=== PATIENT | female | born 1930 | race Caucasian/White ===

== ENCOUNTER 2018-02-12 09:15 | Inpatient (IN) | payer MEDICARE ==
[2018-02-12] MEDS ORDERED: SODIUM CHLORIDE 0.9% 500 ML 500 ML IV STA (09:35)
[2018-02-12] MEDS ORDERED: PANTOPRAZOLE 40 MG/10 ML VIAL IVP STA (09:35)
--- NOTE | 2018-02-12 09:36 | ED ---
General Adult HPI - General Chief complaint: Abdominal Pain Stated complaint: Abd.pain Time Seen by Provider: 02/12/18 09:28 Source: patient, EMS, RN notes reviewed, old records reviewed Mode of arrival: EMS Limitations: no limitations - History of Present Illness Initial comments: 88-year-old female presents for evaluation nausea vomiting. Patient states she has history of multiple myeloma, currently on chemotherapy. Last treatment was approximately 8 days ago. She's had nausea vomiting for the past 2 days. Approximately 10 episodes. Described as coffee-ground emesis. Denies significant abdominal pain. She has had some intermittent diarrhea both over the past several weeks and over the past 48 hours. Denies melena. Denies bright red rectal bleeding. Patient denies chest pain or abdominal pain. Denies fever or chills. Denies she reappeared. Denies cough. - Related Data Home Medications Medication Instructions Recorded Confirmed Levothyroxine Sodium [Synthroid] 137 mcg PO DAILY 06/10/15 01/13/18 Pravastatin Sodium [Pravachol] 40 mg PO HS 06/10/15 01/13/18 Sertraline HCl [Zoloft] 150 mg PO HS 06/10/15 01/13/18 Brimonidine Tartrate/Timolol 1 drop BOTH EYES BID 04/09/17 01/13/18 [Combigan 0.2%-0.5% Eye Drops] Losartan [Cozaar] 50 mg PO DAILY 04/09/17 01/13/18 Dexamethasone 10 tab PO DAILY 04/12/17 01/13/18 Previous Rx's Medication Instructions Recorded Pantoprazole Sodium [Protonix] 40 mg PO BID #60 tablet. 04/13/17 Allergies Allergy/AdvReac Type Severity Reaction Status Date / Time No Known Allergies Allergy Verified 02/12/18 09:24 Review of Systems ROS Statement: Those systems with pertinent positive or pertinent negative responses have been documented in the HPI. ROS Other: All systems not noted in ROS Statement are negative. Past Medical History Past Medical History: Cancer, Eye Disorder, GERD/Reflux, Hearing Disorder / Deafness, Hyperlipidemia, Hypertension, Osteoarthritis (OA), Thyroid Disorder Additional Past Medical History / Comment(s): GLAUCOMA. 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 MULTIPLE MYELOMA. THROMBOCYTOPENIA. 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 History of Any Multi-Drug Resistant Organisms: None Reported Past Surgical History: Section, Joint Replacement, Orthopedic Surgery Additional Past Surgical History / Comment(s): EXC RASHEED CATARACTS. ORIF RT ANKLE. TOTAL LT KNEE. Past Anesthesia/Blood Transfusion Reactions: No Reported Reaction Past Psychological History: Depression Smoking Status: Former smoker Past Alcohol Use History: None Reported Past Drug Use History: None Reported - Past Family History Mother Family Medical History: No Reported History General Exam Limitations: no limitations General appearance: alert, in no apparent distress Head exam: Present: atraumatic, normocephalic Eye exam: Present: normal appearance, PERRL ENT exam: Present: normal exam Neck exam: Present: normal inspection. Absent: tenderness, meningismus Respiratory exam: Present: normal lung sounds bilaterally. Absent: respiratory distress, wheezes Cardiovascular Exam: Present: regular rate, normal rhythm GI/Abdominal exam: Present: soft, distended. Absent: tenderness, guarding, rebound Extremities exam: Present: normal inspection, normal capillary refill. Absent: pedal edema, calf tenderness Neurological exam: Present: alert, oriented X3, CN II-XII intact. Absent: motor sensory deficit Psychiatric exam: Present: normal affect, normal mood Skin exam: Present: warm, dry, intact. Absent: cyanosis, diaphoretic Course Vital Signs 02/12/18 02/12/18 09:24 12:20 Temperature 97.7 F Pulse Rate 101 H 91 Respiratory 18 18 Rate Blood Pressure 119/77 132/77 O2 Sat by Pulse 96 96 Oximetry EKG Findings - EKG Comments: EKG Findings:: EKG: Normal sinus rhythm, left axis deviation, incomplete left bundle with a widened QRS at 110 ms. Left ventricular hypertrophy, no acute ST segment elevation, rate of 98, TN interval 168, QRS duration 110, QTC 469, similar compared to previous EKG in March 2017. Medical Decision Making - Medical Decision Making 88 female presenting with nausea vomiting, concern for coffee-ground emesis. On exam patient does have distended abdomen, no tenderness or rebound. Laboratory studies reveal hemoglobin 11 0 which is improved from previous at 10.1. Patient has leukocytosis with white blood cell count of 79 which is predominant PMNs. This is discussed with oncology given the patient's history, likely reactive. Patient has a worsening creatinine at 2.4. Urinalysis negative for infection. Chest x-ray negative for focal pneumonia. KUB was suggestive of small bowel obstruction, CT is obtained which shows no redness. Patient has lactic acidosis 3.5 is treated with IV hydration. Her vital signs remained stable while in the emergency department. She will be admitted for evaluation of ileus and suspected upper GI bleed. She is started on protonic [facility]. - Lab Data Result diagrams: 02/12/18 09:30 02/12/18 09:30 Lab Results 02/12/18 02/12/18 02/12/18 Range/Units 09:30 09:30 09:30 WBC 79.3 H* (3.8-10.6) k/uL RBC 3.24 L (3.80-5.40) m/uL Hgb 11.0 L (11.4-16.0) gm/dL Hct 34.1 (34.0-46.0) % MCV 105.2 H (80.0-100.0) fL MCH 33.8 (25.0-35.0) pg MCHC 32.2 (31.0-37.0) g/dL RDW 21.4 H (11.5-15.5) % Plt Count 160 (150-450) k/uL Neutrophils % (Manual) 90 % Band Neutrophils % 1 % Lymphocytes % (Manual) 4 % Monocytes % (Manual) 4 % Myelocytes % 2 % Neutrophils # (Manual) 72.10 H (1.3-7.7) k/uL Lymphocytes # (Manual) 3.17 (1.0-4.8) k/uL Monocytes # (Manual) 3.17 H (0-1.0) k/uL Myelocytes # (Manual) 1.59 H (0) k/uL Nucleated RBCs 0 (0-0) /100 WBC Anisocytosis Moderate Macrocytosis Marked PT (9.0-12.0) sec INR (<1.2) APTT (22.0-30.0) sec Sodium 139 (137-145) mmol/L Potassium 5.2 H (3.5-5.1) mmol/L Chloride 99 (98-107) mmol/L Carbon Dioxide 22 (22-30) mmol/L Anion Gap 18 mmol/L BUN 33 H (7-17) mg/dL Creatinine 2.40 H (0.52-1.04) mg/dL Est GFR (CKD-EPI)AfAm 21 (>60 ml/min/1.73 sqM) Est GFR (CKD-EPI)NonAf 18 (>60 ml/min/1.73 sqM) Glucose 151 H (74-99) mg/dL Plasma Lactic Acid Albert 3.5 H* (0.7-2.0) mmol/L Calcium 10.4 H (8.4-10.2) mg/dL Total Bilirubin 0.6 (0.2-1.3) mg/dL AST 32 (14-36) U/L ALT 19 (9-52) U/L Alkaline Phosphatase 186 H (38-126) U/L Total Protein 7.8 (6.3-8.2) g/dL Albumin 4.6 (3.5-5.0) g/dL Amylase 65 (30-110) U/L Lipase 63 (23-300) U/L Urine Color Urine Appearance (Clear) Urine pH (5.0-8.0) Ur Specific [place] (1.001-1.035) Urine Protein (Negative) Urine Glucose (UA) (Negative) Urine Ketones (Negative) Urine Blood (Negative) Urine Nitrite (Negative) Urine Bilirubin (Negative) Urine Urobilinogen (<2.0) mg/dL Ur Leukocyte Esterase (Negative) Urine RBC (0-5) /hpf Urine WBC (0-5) /hpf Ur Squamous Epith Cells (0-4) /hpf Urine Mucus (None) /hpf Blood Type Blood Type Recheck Antibody Screen Spec Expiration Date 02/12/18 02/12/18 02/12/18 Range/Units 09:30 09:30 10:14 WBC (3.8-10.6) k/uL RBC (3.80-5.40) m/uL Hgb (11.4-16.0) gm/dL Hct (34.0-46.0) % MCV (80.0-100.0) fL MCH (25.0-35.0) pg MCHC (31.0-37.0) g/dL RDW (11.5-15.5) % Plt Count (150-450) k/uL Neutrophils % (Manual) % Band Neutrophils % % Lymphocytes % (Manual) % Monocytes % (Manual) % Myelocytes % % Neutrophils # (Manual) (1.3-7.7) k/uL Lymphocytes # (Manual) (1.0-4.8) k/uL Monocytes # (Manual) (0-1.0) k/uL Myelocytes # (Manual) (0) k/uL Nucleated RBCs (0-0) /100 WBC Anisocytosis Macrocytosis PT 10.8 (9.0-12.0) sec INR 1.1 (<1.2) APTT 35.1 H (22.0-30.0) sec Sodium (137-145) mmol/L Potassium (3.5-5.1) mmol/L Chloride (98-107) mmol/L Carbon Dioxide (22-30) mmol/L Anion Gap mmol/L BUN (7-17) mg/dL Creatinine (0.52-1.04) mg/dL Est GFR (CKD-EPI)AfAm (>60 ml/min/1.73 sqM) Est GFR (CKD-EPI)NonAf (>60 ml/min/1.73 sqM) Glucose (74-99) mg/dL Plasma Lactic Acid Albert (0.7-2.0) mmol/L Calcium (8.4-10.2) mg/dL Total Bilirubin (0.2-1.3) mg/dL AST (14-36) U/L ALT (9-52) U/L Alkaline Phosphatase (38-126) U/L Total Protein (6.3-8.2) g/dL Albumin (3.5-5.0) g/dL Amylase (30-110) U/L Lipase (23-300) U/L Urine Color Yellow Urine Appearance Cloudy H (Clear) Urine pH 5.0 (5.0-8.0) Ur Specific [place] 1.016 (1.001-1.035) Urine Protein Trace H (Negative) Urine Glucose (UA) Negative (Negative) Urine Ketones Negative (Negative) Urine Blood Negative (Negative) Urine Nitrite Negative (Negative) Urine Bilirubin Negative (Negative) Urine Urobilinogen <2.0 (<2.0) mg/dL Ur Leukocyte Esterase Negative (Negative) Urine RBC <1 (0-5) /hpf Urine WBC <1 (0-5) /hpf Ur Squamous Epith Cells <1 (0-4) /hpf Urine Mucus Rare H (None) /hpf Blood Type O Positive Blood Type Recheck No Antibody Screen NEGATIVE Spec Expiration Date 02/15/20182329 Disposition Clinical Impression: Ileus, Acute kidney injury, Upper GI bleed Disposition: HOME SELF-CARE Condition: Good Is patient prescribed a controlled substance at d/c from ED?: No Referrals: Erlin Galindo MD [Primary Care Provider] - 1-2 days Decision to Admit Reason: Admit from EC Decision Date: 02/12/18 Decision Time: 12:50
[2018-02-12 10:13] LABS: Anisocytosis Moderate; HCT 34.1 % (34.0-46.0); MCH 33.8 pg (25.0-35.0); MCHC 32.2 g/dL (31.0-37.0); MCV 105.2 fL (80.0-100.0); Macrocytosis Marked; Mean Platelet Volume 7.7; Platelet Count 160 k/uL (150-450); RBC 3.24 m/uL (3.80-5.40); RDW 21.4 % (11.5-15.5)
[2018-02-12 10:18] LABS: INR 1.1 (<1.2); Partial Thromboplastin Time 35.1 sec (22.0-30.0); Prothrombin Time 10.8 sec (9.0-12.0)
[2018-02-12 10:19] LABS: Albumin 4.6 g/dL (3.5-5.0); Calcium 10.4 mg/dL (8.4-10.2); Potassium 5.2 mmol/L (3.5-5.1); Total Bilirubin 0.6 mg/dL (0.2-1.3); Total Protein 7.8 g/dL (6.3-8.2)
[2018-02-12 10:33] LABS: WBC 79.3 k/uL (3.8-10.6)
[2018-02-12 10:37] LABS: Band Neutrophils % 1 %; Lymphocytes # (M) 3.17 k/uL (1.0-4.8); Monocytes # (M) 3.17 k/uL (0-1.0); Myelocytes # (M) 1.59 k/uL (0); Myelocytes % 2 %; Neutrophils % (M) 90 %; Nucleated Red Blood Cells 0 /100 WBC (0-0); Total Cells Counted 200
[2018-02-12 10:43] LABS: Appearance,Urine Cloudy (Clear); Bilirubin,Urine Negative (Negative); Blood,Urine Negative (Negative); Color,Urine Yellow; Glucose,Urine (UA) Negative (Negative); Ketones,Urine Negative (Negative); Leukocyte Esterase,Urine Negative (Negative); Mucus,Urine Rare /hpf; Nitrite,Urine Negative (Negative); Protein,Urine Trace (Negative); RBC,Urine <1 /hpf (0-5); Specific Gravity,Urine 1.016 (1.001-1.035); Squamous Epithelial Cell,Urine <1 /hpf (0-4); Urobilinogen,Urine <2.0 mg/dL (<2.0); WBC,Urine <1 /hpf (0-5)
--- NOTE | 2018-02-12 10:43 | XR ---
EXAMINATION TYPE: XR chest 2V DATE OF EXAM: 02/12/2018 HISTORY: jayson. REFERENCE: Previous study dated 04/11/2017. FINDINGS: The heart is upper limits of normal in size. There is some scarring at the left lung base. The lungs are otherwise clear. Pleural spaces are clear. IMPRESSION: 1. BORDERLINE CARDIOMEGALY. 2. MILD SCARRING, LEFT LUNG BASE.
--- NOTE | 2018-02-12 10:45 | XR ---
EXAMINATION TYPE: XR KUB , 2 VIEWS DATE OF EXAM ORDERED: 02/12/2018 HISTORY: abdominal pain. COMPARISON: None. FINDINGS: There is a partial eventration of the right hemidiaphragm. Lungs otherwise clear. Within the abdomen there are nondistended loops of small bowel throughout the abdomen. There is a [place] of colonic gas. There is no evidence of obstruction or free air. There are some vascular calcifi cations present. IMPRESSION: SMALL BOWEL ILEUS VERSUS OBSTRUCTION.
[2018-02-12] MEDS ORDERED: SODIUM CHLORIDE 0.9% 500 ML 500 ML IV ONE (10:57)
--- NOTE | 2018-02-12 11:51 | CT ---
EXAMINATION TYPE: CT abdomen pelvis wo con DATE OF EXAM: 02/12/2018 COMPARISON: NONE HISTORY: Nausea, vomiting and diarrhea. CT DLP: 371.8 mGycm Automated exposure control for dose reduction was used. FINDINGS: There is mild, dependent atelectasis in the dependent portions of the lungs. There is a tra ce effusion on the right. There is no pericardial fluid. The heart is not enlarged. There are vascula r calcifications including the coronary arteries. Within the abdomen, the liver, spleen and gallbladder are unremarkable. There is a tiny calcification adjacent to the posterior segment of the right lobe of the liver of uncertain origin. Both adrenal glands appear normal. The left kidney is considerably smaller than the right kidney and may suffer from atrophy. Very Limited views of the pancreas are unremarkable. There is no significant retroperitoneal, iliac or inguinal adenopathy. The bladder is not distended. There are some calcifications associated with the uterus, likely secondary to fibroid change. The lef t ovary is unremarkable. The right ovary is not visualized with certainty. The colon is distended with fluid with large air-fluid levels. There is high density material layerin g in the cecum. This may be old contrast or medication. The appendix is not visualized with certainty . Small bowel loops distally are also distended and fluid-filled. There are more normal proximally. There is no significant free fluid or free air. There is hypertrophic spondylosis, facet arthropathy and degenerative disc disease in the spine. Ther e is a 60% compression fracture of L4 and a 20% compression fracture of L3. IMPRESSION: 1. FINDINGS SUGGESTIVE OF GENERALIZED ILEUS. 2. TINY RIGHT-SIDED EFFUSION. 3. LEFT RENAL ATROPHY. 4. PROBABLE FIBROID UTERUS. 5. MARKED DEGENERATIVE CHANGES AND WEDGE COMPRESSION FRACTURES WITHIN THE LUMBAR SPINE. THESE APPEAR CHRONIC.
[2018-02-12] MEDS: SODIUM CHLORIDE 0.9% 1,000 ML IV SCH ×2 (12:16→16:44)
[2018-02-12] MEDS ORDERED: NALOXONE 0.4 MG/ML 1 ML VIAL IV PRN (12:44)
[2018-02-12] MEDS ORDERED: ONDANSETRON 4 MG/2 ML VIAL IVP PRN (12:44)
[2018-02-12 15:14] LABS: Anisocytosis Moderate; HCT 29.9 % (34.0-46.0); HGB 9.9 gm/dL (11.4-16.0); MCH 34.3 pg (25.0-35.0); Macrocytosis Marked; Mean Platelet Volume 8.2; Platelet Count 130 k/uL (150-450); RBC 2.87 m/uL (3.80-5.40); RDW 20.7 % (11.5-15.5)
[2018-02-12 15:21] LABS: Albumin 3.9 g/dL (3.5-5.0); Calcium 9.5 mg/dL (8.4-10.2); Potassium 5.1 mmol/L (3.5-5.1); Total Bilirubin 0.4 mg/dL (0.2-1.3); Total Protein 6.5 g/dL (6.3-8.2)
[2018-02-12] MEDS ORDERED: ACETAMINOPHEN IV (For NPO) 1,000 MG in EMPTY BAG 1 BAG IVPB ONE (15:28)
[2018-02-12 17:04] VITALS: BMI 21.2
[2018-02-12 17:09] LABS: Band Neutrophils % 3 %; Lymphocytes # (M) 4.55 k/uL (1.0-4.8); Metamyelocytes % 2 %; Myelocytes # (M) 1.95 k/uL (0); Myelocytes % 3 %; Neutrophils % (M) 82 %; Nucleated Red Blood Cells 0 /100 WBC (0-0); Polychromasia Present; Total Cells Counted 200
[2018-02-12] MEDS: PANTOPRAZOLE 40 MG/10 ML VIAL IVP SCH (20:11)
[2018-02-12] MEDS ORDERED: MELATONIN 3 MG TABLET PO PRN (22:12)
[2018-02-12] MEDS ORDERED: ALPRAZolam 0.25 MG TAB PO PRN (22:12)
[2018-02-12] MEDS ORDERED: CALCIUM CARBONATE 500 MG CHEWABLE PO PRN (22:12)
[2018-02-12] MEDS ORDERED: SULFAMETHOX-TMP 800-160MG 1 EACH TAB PO SCH (22:15)
[2018-02-12] MEDS ORDERED: metroNIDAZOLE 500 MG TAB PO SCH (22:15)
[2018-02-12] MEDS: LATANOPROST 0.005% OPHTH DROPS 2.5 ML BTL BOTH EYES SCH (22:36)
[2018-02-12] MEDS: SERTRALINE 50 MG TAB PO SCH (22:36)
[2018-02-12] MEDS: ACYCLOVIR 200 MG CAP PO SCH (22:36)
[2018-02-12] MEDS: BRIMONIDINE TARTRATE 0.2% DROPS 5 ML BTL BOTH EYES SCH (22:40)
[2018-02-12] MEDS: DORZOLAMIDE HCL 2% DROPS 10 ML BTL BOTH EYES SCH (22:40)
[2018-02-12] MEDS: PIPERACILLIN-TAZOBACTAM 3.375 GM in DEXTROSE/WATER 1 50ML.BAG IVPB SCH (22:47)
[2018-02-12] MEDS ORDERED: PIPERACILLIN-TAZOBACTAM 2.25 GM in DEXTROSE/WATER 1 50ML.BAG IVPB SCH (23:00)
--- NOTE | 2018-02-12 23:32 | HP ---
HISTORY AND PHYSICAL DATE OF ADMISSION: 02/12/2018 DATE OF SERVICE: 02/12/2018 PRESENT COMPLAINT: Nausea, vomiting, diarrhea. HISTORY OF PRESENTING COMPLAINT: A very pleasant, 88 -year-old patient of Dr. Galindo. The patient is being followed by Dr. Jaquez for multiple myeloma. The patient is on chemotherapy 1 week on and 1 week off. Chronic stable medical conditions include GERD, hard of hearing, hyperlipidemia, hypertension, osteoarthritis, hypothyroidism and herniated disc. This is patient's week off with chemotherapy. One day ago patient started off with the multiple episodes of vomiting, diarrhea, abdominal distention, some abdominal pain. There was no fever, no chills. The patient in the ER, found to have a very grossly elevated white count of 79,000, also has renal failure. CT scan of the abdomen did show an ileus with air- fluid levels in the small and large bowel. The patient admitted for the same. C diff came back to be negative as the patient also had multiple stools. REVIEW OF SYSTEMS: CONSTITUTIONAL: Weak and tired. HEENT: None. RESPIRATORY: None. CARDIOVASCULAR: None. GASTROINTESTINAL: As above. Abdomen distended. GENITOURINARY: As above. MUSCULOSKELETAL: Arthritic pain in the joints. DERMATOLOGICAL: None. HEMATOLOGICAL: None. LYMPHATICS: None. PSYCHIATRIC: None. NEUROLOGICAL: None. PAST MEDICAL HISTORY: GERD, hard of hearing, hyperlipidemia, hypertension, osteoarthritis, hypothyroid, multiple myeloma, thrombocytopenia, herniated disc. PAST SURGICAL HISTORY: , joint replacement, bilateral cataract, ORIF left ankle, total left knee. PSYCH HISTORY: Depression. SOCIAL HISTORY: The patient smoked lightly for 25 years, until 1973. Alcohol none. The patient's son lives in the next door apartment. FAMILY HISTORY: Reviewed, not pertinent to presentation. HOME MEDICATIONS: 1. Bactrim DS 1 tablet as directed. 2. Zoloft 150 mg at bedtime. 3. Pravachol 40 mg q.h.s. 4. Omeprazole 20 mg p.o. daily. 5. Multivitamin 1 tablet p.o. daily. 6. Synthroid 137 mcg p.o. daily. 7. Xalatan 0.005% 1 drop to both eyes q.h.s. 8. Calcium 600 mg p.o. daily. 9. Simbrinza 1%/0.2% 1 drop to both eyes b.i.d. 10.Acyclovir 4 mg b.i.d. ALLERGIES: None. PHYSICAL EXAMINATION: VITAL SIGNS: Temperature 100.4, pulse 101, respiration 18, blood pressure 119/77, pulse ox 96% on room air. GENERAL APPEARANCE: Thin build, lying in bed, tired appearing. EYES: Pupils equal. Conjunctivae pale. HEENT: External appearance of nose and ears normal. Oral cavity dry. NECK: JVD not raised. Mass not palpable. RESPIRATORY: Effort normal. LUNGS: Decreased breath sounds. CARDIOVASCULAR: 1st and 2nd sounds normal. No edema. ABDOMEN: Distended, mild tenderness. Bowel sounds are present. Liver and spleen not palpable. LYMPHATICS: No lymph nodes palpable in the neck and axilla. PSYCHIATRY: Alert and oriented x3. Mood and affect anxious-appearing. NEUROLOGICAL: Pupils equal. Cranial nerves grossly intact. Power and sensation grossly intact. MUSCULOSKELETAL: Evidence of osteoarthritis especially in the hands. INVESTIGATIONS: White count 23167, hemoglobin 9.9, platelets 130, potassium 5.1, BUN 35, creatinine 2.32. BUN and creatinine was 26/1.45 on January 06, 2018. C diff toxin PCR negative. Chest x-ray film, personally reviewed by me shows some cardiomegaly. Lung silva otherwise are clear with some kyphosis, some anterior wedging. Abdominal x-ray showing small bowel ileus versus obstruction. CT scan of the abdomen and pelvis suggesting generalized ileus, left renal atrophy, mild DJD, wedge compression fracture in the lumbar spine. ASSESSMENT: 1. This is a patient who is on chemotherapy on and off for multiple myeloma on week off, presented 1 day of severe nausea, vomiting, and multiple stools. Stool is negative for C diff. White count is up to 70,000. The patient has got a bit of septic picture with a fever, tachycardia. 2. Primary osteoarthritis. 3. Hypothyroidism. 4. 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 5. Bicytopenia probably due to chemotherapy. 6. Metabolic acidosis, acute renal failure probably prerenal. PLAN: Patient's home medications are resumed. Patient's Bactrim will be held off. The patient will be put on ice chips, IV fluids. Start the patient on broad-spectrum antibiotics given the chemotherapy. Consult GI, Dr. Jaquez, keep a close eye. Also getting IV fluids. Copy to Dr. Galindo. MMSUSANL / IJN: [id number] /
[2018-02-13] MEDS: ACETAMINOPHEN TAB 325 MG TAB PO PRN ×4 (02:47→22:47)
[2018-02-13] MEDS: SODIUM CHLORIDE 0.9% 1,000 ML IV SCH ×3 (02:48→16:35)
[2018-02-13] MEDS: LEVOTHYROXINE 137 MCG TAB PO SCH (05:53)
[2018-02-13] MEDS: MULTIVITAMINS, THERA 1 EACH TAB PO SCH (07:19)
[2018-02-13] MEDS ORDERED: PANTOPRAZOLE 40 MG TABLET PO SCH (07:30)
[2018-02-13] MEDS: BRIMONIDINE TARTRATE 0.2% DROPS 5 ML BTL BOTH EYES SCH ×2 (07:33→20:23)
[2018-02-13] MEDS: ACYCLOVIR 200 MG CAP PO SCH ×2 (07:33→20:25)
[2018-02-13] MEDS: DORZOLAMIDE HCL 2% DROPS 10 ML BTL BOTH EYES SCH ×2 (07:33→20:23)
[2018-02-13 07:58] LABS: Albumin 3.3 g/dL (3.5-5.0); Calcium 8.5 mg/dL (8.4-10.2); Magnesium 2.1 mg/dL (1.6-2.3); Potassium 4.4 mmol/L (3.5-5.1); Total Bilirubin 0.5 mg/dL (0.2-1.3); Total Protein 5.8 g/dL (6.3-8.2)
[2018-02-13 08:02] LABS: Anisocytosis Moderate; HCT 29.5 % (34.0-46.0); HGB 9.5 gm/dL (11.4-16.0); Hypochromasia Slight; MCH 34.5 pg (25.0-35.0); MCHC 32.2 g/dL (31.0-37.0); MCV 107.2 fL (80.0-100.0); Macrocytosis Marked; Mean Platelet Volume 7.6; Platelet Count 123 k/uL (150-450); RBC 2.75 m/uL (3.80-5.40); RDW 21.5 % (11.5-15.5)
[2018-02-13 10:32] LABS: Band Neutrophils % 6 %; Lymphocytes # (M) 4.06 k/uL (1.0-4.8); Metamyelocytes # (M) 0.58 k/uL (0); Metamyelocytes % 1 %; Myelocytes # (M) 1.16 k/uL (0); Myelocytes % 2 %; Neutrophils % (M) 80 %; Nucleated Red Blood Cells 0 /100 WBC (0-0); Total Cells Counted 200
[2018-02-13] MEDS: PANTOPRAZOLE 40 MG/10 ML VIAL IVP SCH ×2 (11:32→21:45)
[2018-02-13] MEDS: PIPERACILLIN-TAZOBACTAM 3.375 GM in DEXTROSE/WATER 1 50ML.BAG IVPB SCH ×2 (11:32→18:58)
--- NOTE | 2018-02-13 14:08 | P.CONS ---
History of Present Illness - Reason for Consult Consult date: 02/13/18 Sepsis - History of Present Illness This is an 88-year-old female patient with past medical history significant for multiple myeloma under the care of Dr. Jaquez. Patient states she has had ongoing problems with diarrhea on and off since she was diagnosed in March 2017 with multiple myeloma. She states this episode that was bad started on . She is having multiple watery stools. She denies any fever or chills. She did have nausea and vomiting which has been resolved with Zofran. She states this episode actually started first with vomiting and did this several times during the day and then diarrhea followed. She normally takes Imodium and keeps this under control but this episode was worse than usual. Patient denies having any blood or tarriness to her stools or emesis. She came into [facility] emergency center for evaluation. Temperature maximum 100.4, white count initially 79.3 is now 58 with hemoglobin of 9.5 and platelet count 123. Creatinine was initially 2.4 and now at 1.79. Lactic acid was 3.5 and is now 1.3 status post 1 L of IV fluids, ceftriaxone IV Tylenol and Protonix were all given in the emergency center. Alkaline phosphatase was also elevated 186 and repeat is 122. Albumin is 3.3. Chest x- ray shows borderline cardiomegaly and left lower base scarring. CAT scan of the abdomen and pelvis without contrast showed generalized ileus, probable fibroid uterus, left renal atrophy, some tiny right-sided effusion. General changes in wedge compression fractures in the lumbar spine appear chronic. Patient was placed on Zosyn and admitted to the oncology unit. There is consult in place with Dr. Jaquez and immunoglobulin, stool for CMV and protein electrophoresis have been ordered. There is also Giardia and cryptosporidium ordered. Urine culture and blood culture status received. Patient has been on Zosyn and this point, she states she is not feeling any better but her nausea is improved. She has had multiple bowel movements since admission. C. difficile toxin is negative. Influenza testing is negative. Review of Systems All systems: negative Constitutional: Reports anorexia, Reports fatigue, Reports poor appetite, Reports weakness, Reports weight loss, Denies chills, Denies fever Eyes: denies blurred vision, denies pain Ears, nose, mouth and throat: Denies dental pain, Denies dysphagia, Denies headache, Denies mouth pain, Denies sore throat, Denies vertigo Cardiovascular: Denies chest pain, Denies shortness of breath, Denies syncope Respiratory: Denies cough, Denies cough with sputum, Denies dyspnea, Denies excessive sputum, Denies hemoptysis, Denies home oxygen, Denies wheezing Gastrointestinal: Reports abdominal pain, Reports diarrhea, Reports loss of appetite, Reports nausea, Reports vomiting, Denies coffee ground emesis, Denies constipation, Denies hematemesis, Denies hematochezia, Denies melena Genitourinary: Denies dysuria, Denies hematuria, Denies urgency, Denies urinary frequency Musculoskeletal: Denies frequent falls, Denies gait dysfunction, Denies myalgias Integumentary: Denies pruritus, Denies rash, Denies wounds Neurological: Denies change in mentation, Denies confusion, Denies gait dysfunction, Denies numbness, Denies weakness Psychiatric: Denies anxiety, Denies depression Endocrine: Denies fatigue, Denies weight change Past Medical History Past Medical History: Cancer, Eye Disorder, GERD/Reflux, Hearing Disorder / Deafness, Hyperlipidemia, Hypertension, Osteoarthritis (OA), Thyroid Disorder Additional Past Medical History / Comment(s): GLAUCOMA. 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 MULTIPLE MYELOMA. THROMBOCYTOPENIA. 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 History of Any Multi-Drug Resistant Organisms: None Reported Past Surgical History: Section, Joint Replacement, Orthopedic Surgery Additional Past Surgical History / Comment(s): EXC RASHEED CATARACTS. ORIF RT ANKLE. TOTAL LT KNEE. Past Anesthesia/Blood Transfusion Reactions: No Reported Reaction Past Psychological History: Depression Smoking Status: Former smoker Past Alcohol Use History: None Reported Additional Past Alcohol Use History / Comment(s): SMOKED LIGHTLY 27 YEARS EST, UNTIL 1973. She denies any illicit drug use. She does drink alcohol occasionally. She lives at home and her son lives in the apartment next to her. 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 There is a cat in the home. Past Drug Use History: None Reported - Past Family History Mother Family Medical History: No Reported History Medications and Allergies Home Medications Medication Instructions Recorded Confirmed Type Levothyroxine Sodium [Synthroid] 137 mcg PO DAILY 06/10/15 02/12/18 History Pravastatin Sodium [Pravachol] 40 mg PO HS 06/10/15 02/12/18 History Sertraline HCl [Zoloft] 150 mg PO HS 06/10/15 02/12/18 History Acyclovir 400 mg PO BID 02/12/18 02/12/18 History Brinzolamide/Brimonidine Tart 1 drop BOTH EYES BID 02/12/18 02/12/18 History [Simbrinza 1%-0.2% Eye Drops] Calcium Carbonate [Calcium] 600 mg PO DAILY 02/12/18 02/12/18 History Latanoprost [Xalatan 0.005%] 1 drop BOTH EYES HS 02/12/18 02/12/18 History Multivitamins, Thera [Multivitamin 1 tab PO DAILY 02/12/18 02/12/18 History (formulary)] Omeprazole 20 mg PO DAILY 02/12/18 02/12/18 History Sulfamethox-Tmp 800-160Mg [Bactrim 1 tab PO DIRECTED 02/12/18 02/12/18 History DS 800-160 mg] Allergies Allergy/AdvReac Type Severity Reaction Status Date / Time No Known Allergies Allergy Verified 02/12/18 13:32 Physical Exam Vitals: Vital Signs Temp Pulse Pulse Resp BP BP Pulse Ox 02/13/18 07:11 98.2 F 87 16 126/61 94 L 02/12/18 16:30 98.6 F 92 16 130/64 95 02/12/18 15:25 100.4 F H 93 18 133/67 96 02/12/18 14:19 88 18 126/71 96 02/12/18 12:20 91 18 132/77 96 Intake and Output 02/12/18 02/13/18 02/13/18 22:59 06:59 14:59 Intake Total 620 1050 Balance 620 1050 Intake: Intake, IV Titration 500 1050 Amount Piperacillin-Tazobactam 3 50 .375 gm In Dextrose/Water 1 50ml.bag @ 12.5 mls/hr IVPB Q12H [facility] Rx#: [id number] Sodium Chloride 0.9% 1, 500 1000 000 ml @ 125 mls/hr IV . Q8H [facility] Rx#:[id number] Oral 120 Other: Voiding Method Bedside Commode Bedside Commode Bedside Commode Diaper Diaper Incontinent Incontinent # Bowel Movements 1 2 Weight 63.276 kg Gen: This is an 88-year-old female. She appears to be uncomfortable and in bed. She is slightly thin-appearing. HEENT: Head is atraumatic, normocephalic. Pupils equal, round. Sclerae is anicteric. Mucous members of the mouth are slightly dry. No thrush noted. NECK: Supple. No JVD. No lymphadenopathy. No thyromegaly. LUNGS: Clear to auscultation. No wheezes or rhonchi. No intercostal retractions. HEART: Regular rate and rhythm. No murmur. ABDOMEN: Soft. Bowel sounds are present. No masses. Mild generalized tenderness. EXTREMITIES: No pedal edema. No calf tenderness. Dorsalis pedis +2 bilaterally. NEUROLOGICAL: Patient is awake, alert and oriented x3. Cranial nerves 2 through 12 are grossly intact. Results Results: Laboratory Results WBC 58.0 k/uL (3.8-10.6) H* 02/13/18 07:12 RBC 2.75 m/uL (3.80-5.40) L 02/13/18 07:12 Hgb 9.5 gm/dL (11.4-16.0) L 02/13/18 07:12 Hct 29.5 % (34.0-46.0) L 02/13/18 07:12 MCV 107.2 fL (80.0-100.0) H 02/13/18 07:12 MCH 34.5 pg (25.0-35.0) 02/13/18 07:12 MCHC 32.2 g/dL (31.0-37.0) 02/13/18 07:12 RDW 21.5 % (11.5-15.5) H 02/13/18 07:12 Plt Count 123 k/uL (150-450) L 02/13/18 07:12 Neutrophils % (Manual) 80 % 02/13/18 07:12 Band Neutrophils % 6 % 02/13/18 07:12 Lymphocytes % (Manual) 7 % 02/13/18 07:12 Monocytes % (Manual) 5 % 02/13/18 07:12 Metamyelocytes % 1 % 02/13/18 07:12 Myelocytes % 2 % 02/13/18 07:12 Neutrophils # (Manual) 49.80 k/uL (1.3-7.7) H 02/13/18 07:12 Lymphocytes # (Manual) 4.06 k/uL (1.0-4.8) 02/13/18 07:12 Monocytes # (Manual) 2.90 k/uL (0-1.0) H 02/13/18 07:12 Metamyelocytes # (Man) 0.58 k/uL (0) H 02/13/18 07:12 Myelocytes # (Manual) 1.16 k/uL (0) H 02/13/18 07:12 Nucleated RBCs 0 /100 WBC (0-0) 02/13/18 07:12 Manual Slide Review Performed 02/13/18 07:12 Polychromasia Present 02/12/18 14:55 Hypochromasia Slight 02/13/18 07:12 Anisocytosis Moderate 02/13/18 07:12 Macrocytosis Marked 02/13/18 07:12 PT 10.8 sec (9.0-12.0) 02/12/18 09:30 INR 1.1 (<1.2) 02/12/18 09:30 APTT 35.1 sec (22.0-30.0) H 02/12/18 09:30 Sodium 140 mmol/L (137-145) 02/13/18 07:12 Potassium 4.4 mmol/L (3.5-5.1) 02/13/18 07:12 Chloride 111 mmol/L (98-107) H 02/13/18 07:12 Carbon Dioxide 18 mmol/L (22-30) L 02/13/18 07:12 Anion Gap 11 mmol/L 02/13/18 07:12 BUN 38 mg/dL (7-17) H 02/13/18 07:12 Creatinine 1.79 mg/dL (0.52-1.04) H 02/13/18 07:12 Est GFR (CKD-EPI)AfAm 29 (>60 ml/min/1.73 sqM) 02/13/18 07:12 Est GFR (CKD-EPI)NonAf 25 (>60 ml/min/1.73 sqM) 02/13/18 07:12 Glucose 107 mg/dL (74-99) H 02/13/18 07:12 Lactic Ac Sepsis Rflx Y 02/12/18 11:32 Plasma Lactic Acid Albert 1.3 mmol/L (0.7-2.0) 02/12/18 15:37 Calcium 8.5 mg/dL (8.4-10.2) 02/13/18 07:12 Magnesium 2.1 mg/dL (1.6-2.3) 02/13/18 07:12 Total Bilirubin 0.5 mg/dL (0.2-1.3) 02/13/18 07:12 AST 24 U/L (14-36) 02/13/18 07:12 ALT 20 U/L (9-52) 02/13/18 07:12 Alkaline Phosphatase 122 U/L (38-126) 02/13/18 07:12 Total Protein 5.8 g/dL (6.3-8.2) L 02/13/18 07:12 Albumin 3.3 g/dL (3.5-5.0) L 02/13/18 07:12 Amylase 65 U/L (30-110) 02/12/18 09:30 Lipase 63 U/L (23-300) 02/12/18 09:30 Urine Color Yellow 02/12/18 10:14 Urine Appearance Cloudy (Clear) H 02/12/18 10:14 Urine pH 5.0 (5.0-8.0) 02/12/18 10:14 Ur Specific [place] 1.016 (1.001-1.035) 02/12/18 10:14 Urine Protein Trace (Negative) H 02/12/18 10:14 Urine Glucose (UA) Negative (Negative) 02/12/18 10:14 Urine Ketones Negative (Negative) 02/12/18 10:14 Urine Blood Negative (Negative) 02/12/18 10:14 Urine Nitrite Negative (Negative) 02/12/18 10:14 Urine Bilirubin Negative (Negative) 02/12/18 10:14 Urine Urobilinogen <2.0 mg/dL (<2.0) 02/12/18 10:14 Ur Leukocyte Esterase Negative (Negative) 02/12/18 10:14 Urine RBC <1 /hpf (0-5) 02/12/18 10:14 Urine WBC <1 /hpf (0-5) 02/12/18 10:14 Ur Squamous Epith Cells <1 /hpf (0-4) 02/12/18 10:14 Urine Mucus Rare /hpf (None) H 02/12/18 10:14 C. difficile Tox (PCR) Not Detected (Not Detectd) 02/12/18 15:37 Influenza Type A RNA Not Detected (Not Detectd) 02/13/18 09:25 Influenza Type B (PCR) Not Detected (Not Detectd) 02/13/18 09:25 Blood Type O Positive 02/12/18 09:30 Blood Type Recheck No 02/12/18 09:30 Antibody Screen NEGATIVE 02/12/18 09:30 Spec Expiration Date 02/15/2018 - 232902/12/18 09:30 CBC & Chem 7: 02/13/18 07:12 02/13/18 07:12 Labs: Abnormal Lab Results - Last 24 Hours (Table) 02/12/18 02/12/18 02/12/18 Range/Units 09:30 09:30 10:14 WBC 79.3 H* (3.8-10.6) k/uL RBC 3.24 L (3.80-5.40) m/uL Hgb 11.0 L (11.4-16.0) gm/dL Hct (34.0-46.0) % MCV 105.2 H (80.0-100.0) fL RDW 21.4 H (11.5-15.5) % Plt Count (150-450) k/uL Neutrophils # (Manual) 72.10 H (1.3-7.7) k/uL Monocytes # (Manual) 3.17 H (0-1.0) k/uL Metamyelocytes # (Man) (0) k/uL Myelocytes # (Manual) 1.59 H (0) k/uL Chloride (98-107) mmol/L Carbon Dioxide (22-30) mmol/L BUN (7-17) mg/dL Creatinine (0.52-1.04) mg/dL Glucose (74-99) mg/dL Plasma Lactic Acid Albert 3.5 H* (0.7-2.0) mmol/L Alkaline Phosphatase (38-126) U/L Total Protein (6.3-8.2) g/dL Albumin (3.5-5.0) g/dL Urine Appearance Cloudy H (Clear) Urine Protein Trace H (Negative) Urine Mucus Rare H (None) /hpf 02/12/18 02/12/18 02/13/18 Range/Units 14:55 14:55 07:12 WBC 65.0 H* (3.8-10.6) k/uL RBC 2.87 L (3.80-5.40) m/uL Hgb 9.9 L (11.4-16.0) gm/dL Hct 29.9 L (34.0-46.0) % MCV 104.0 H (80.0-100.0) fL RDW 20.7 H (11.5-15.5) % Plt Count 130 L (150-450) k/uL Neutrophils # (Manual) 55.20 H (1.3-7.7) k/uL Monocytes # (Manual) 2.60 H (0-1.0) k/uL Metamyelocytes # (Man) 1.30 H (0) k/uL Myelocytes # (Manual) 1.95 H (0) k/uL Chloride 111 H (98-107) mmol/L Carbon Dioxide 21 L 18 L (22-30) mmol/L BUN 35 H 38 H (7-17) mg/dL Creatinine 2.32 H 1.79 H (0.52-1.04) mg/dL Glucose 112 H 107 H (74-99) mg/dL Plasma Lactic Acid Albert (0.7-2.0) mmol/L Alkaline Phosphatase 151 H (38-126) U/L Total Protein 5.8 L (6.3-8.2) g/dL Albumin 3.3 L (3.5-5.0) g/dL Urine Appearance (Clear) Urine Protein (Negative) Urine Mucus (None) /hpf 02/13/18 Range/Units 07:12 WBC 58.0 H* (3.8-10.6) k/uL RBC 2.75 L (3.80-5.40) m/uL Hgb 9.5 L (11.4-16.0) gm/dL Hct 29.5 L (34.0-46.0) % MCV 107.2 H (80.0-100.0) fL RDW 21.5 H (11.5-15.5) % Plt Count 123 L (150-450) k/uL Neutrophils # (Manual) (1.3-7.7) k/uL Monocytes # (Manual) (0-1.0) k/uL Metamyelocytes # (Man) (0) k/uL Myelocytes # (Manual) (0) k/uL Chloride (98-107) mmol/L Carbon Dioxide (22-30) mmol/L BUN (7-17) mg/dL Creatinine (0.52-1.04) mg/dL Glucose (74-99) mg/dL Plasma Lactic Acid Albert (0.7-2.0) mmol/L Alkaline Phosphatase (38-126) U/L Total Protein (6.3-8.2) g/dL Albumin (3.5-5.0) g/dL Urine Appearance (Clear) Urine Protein (Negative) Urine Mucus (None) /hpf Microbiology - Last 24 Hours (Table) 02/12/18 10:14 Urine Culture - Preliminary Urine,Catheterized Assessment and Plan Plan: This is an 88-year-old female patient who presented to the hospital with fever, leukocytosis and possible sepsis with lactic acidosis along with acute kidney injury and concern for ileus. C. difficile toxin has been negative and stool studies are in progress. Dr. Sanchez is on consult and has advance her diet to clear and advance as tolerated to regular and suppository ordered. Patient is currently on Zosyn. Continue supportive care. Further recommendations as patient progresses. The above dictated assessment and findings were discussed with Dr. Kendrick. The impression and plan of care have been directed as dictated. Leah Contreras nurse practitioner acting as scribe for Dr. Kendrick.
--- NOTE | 2018-02-13 14:51 | P.GSCN ---
History of Present Illness Consult date: 02/13/18 Reason for Consult: Abdominal pain History of present illness: Patient admitted to the hospital yesterday because of abdominal discomfort associated with episodes of vomiting and diarrhea. The patient is currently undergoing chemotherapy for multiple myeloma. She is felt nausea with intermittent vomiting over the last 2-3 days. Has been having multiple loose stools over the last few days as well. Denies rectal bleeding or melena. Had 1 episode of emesis seen by EMS that was apparently dark in color. She had a fever of 100.4 on arrival. She had an elevated lactic acid that has improved. Stool cultures are currently pending. C. diff was negative. Last colonoscopy 6 -7 years ago. Denies pain currently. Does feel bloated. She is more hungry. CAT scan shows diffuse colonic distention with no definite transition point. No pneumatosis seen. Review of Systems The patient denies any acute changes in vision or hearing, no dysphagia or odynophagia, no chest pain or shortness of breath, no dysuria or hematuria, no headache, no runny nose, no rectal bleeding or melena, no unexplained weight loss Past Medical History Past Medical History: Cancer, Eye Disorder, GERD/Reflux, Hearing Disorder / Deafness, Hyperlipidemia, Hypertension, Osteoarthritis (OA), Thyroid Disorder Additional Past Medical History / Comment(s): GLAUCOMA. 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 MULTIPLE MYELOMA. THROMBOCYTOPENIA. 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 History of Any Multi-Drug Resistant Organisms: None Reported Past Surgical History: Section, Joint Replacement, Orthopedic Surgery Additional Past Surgical History / Comment(s): EXC RASHEED CATARACTS. ORIF RT ANKLE. TOTAL LT KNEE. Past Anesthesia/Blood Transfusion Reactions: No Reported Reaction Past Psychological History: Depression Smoking Status: Former smoker Past Alcohol Use History: None Reported Additional Past Alcohol Use History / Comment(s): SMOKED LIGHTLY 27 YEARS EST, UNTIL 1973. She denies any illicit drug use. She does drink alcohol occasionally. She lives at home and her son lives in the apartment next to her. 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 There is a cat in the home. Past Drug Use History: None Reported - Past Family History Mother Family Medical History: No Reported History Medications and Allergies Home Medications Medication Instructions Recorded Confirmed Type Levothyroxine Sodium [Synthroid] 137 mcg PO DAILY 06/10/15 02/12/18 History Pravastatin Sodium [Pravachol] 40 mg PO HS 06/10/15 02/12/18 History Sertraline HCl [Zoloft] 150 mg PO HS 06/10/15 02/12/18 History Acyclovir 400 mg PO BID 02/12/18 02/12/18 History Brinzolamide/Brimonidine Tart 1 drop BOTH EYES BID 02/12/18 02/12/18 History [Simbrinza 1%-0.2% Eye Drops] Calcium Carbonate [Calcium] 600 mg PO DAILY 02/12/18 02/12/18 History Latanoprost [Xalatan 0.005%] 1 drop BOTH EYES HS 02/12/18 02/12/18 History Multivitamins, Thera [Multivitamin 1 tab PO DAILY 02/12/18 02/12/18 History (formulary)] Omeprazole 20 mg PO DAILY 02/12/18 02/12/18 History Sulfamethox-Tmp 800-160Mg [Bactrim 1 tab PO DIRECTED 02/12/18 02/12/18 History DS 800-160 mg] Allergies Allergy/AdvReac Type Severity Reaction Status Date / Time No Known Allergies Allergy Verified 02/12/18 13:32 Surgical - Exam Vital Signs Temp Pulse Resp BP Pulse Ox 97.7 F 101 H 18 119/77 96 02/12/18 09:24 02/12/18 09:24 02/12/18 09:24 02/12/18 09:24 02/12/18 09:24 Physical exam: General: Well-developed, well-nourished HEENT: Normocephalic, sclerae nonicteric Abdomen: Distended with tympany, mild diffuse tenderness Extremities: No edema Neuro: Alert and oriented Results - Labs 02/13/18 07:12 02/13/18 07:12 Abnormal Lab Results - Last 24 Hours (Table) 02/12/18 02/12/18 02/13/18 Range/Units 14:55 14:55 07:12 WBC 65.0 H* (3.8-10.6) k/uL RBC 2.87 L (3.80-5.40) m/uL Hgb 9.9 L (11.4-16.0) gm/dL Hct 29.9 L (34.0-46.0) % MCV 104.0 H (80.0-100.0) fL RDW 20.7 H (11.5-15.5) % Plt Count 130 L (150-450) k/uL Neutrophils # (Manual) 55.20 H (1.3-7.7) k/uL Monocytes # (Manual) 2.60 H (0-1.0) k/uL Metamyelocytes # (Man) 1.30 H (0) k/uL Myelocytes # (Manual) 1.95 H (0) k/uL Chloride 111 H (98-107) mmol/L Carbon Dioxide 21 L 18 L (22-30) mmol/L BUN 35 H 38 H (7-17) mg/dL Creatinine 2.32 H 1.79 H (0.52-1.04) mg/dL Glucose 112 H 107 H (74-99) mg/dL Alkaline Phosphatase 151 H (38-126) U/L Total Protein 5.8 L (6.3-8.2) g/dL Albumin 3.3 L (3.5-5.0) g/dL 02/13/18 Range/Units 07:12 WBC 58.0 H* (3.8-10.6) k/uL RBC 2.75 L (3.80-5.40) m/uL Hgb 9.5 L (11.4-16.0) gm/dL Hct 29.5 L (34.0-46.0) % MCV 107.2 H (80.0-100.0) fL RDW 21.5 H (11.5-15.5) % Plt Count 123 L (150-450) k/uL Neutrophils # (Manual) 49.80 H (1.3-7.7) k/uL Monocytes # (Manual) 2.90 H (0-1.0) k/uL Metamyelocytes # (Man) 0.58 H (0) k/uL Myelocytes # (Manual) 1.16 H (0) k/uL Chloride (98-107) mmol/L Carbon Dioxide (22-30) mmol/L BUN (7-17) mg/dL Creatinine (0.52-1.04) mg/dL Glucose (74-99) mg/dL Alkaline Phosphatase (38-126) U/L Total Protein (6.3-8.2) g/dL Albumin (3.5-5.0) g/dL Microbiology - Last 24 Hours (Table) 02/12/18 09:30 Blood Culture - Preliminary Blood No Growth after 24 hours 02/12/18 10:14 Urine Culture - Preliminary Urine,Catheterized Diabetes panel 02/12/18 02/13/18 Range/Units 14:55 07:12 Sodium 138 140 (137-145) mmol/L Potassium 5.1 4.4 (3.5-5.1) mmol/L Chloride 105 111 H (98-107) mmol/L Carbon Dioxide 21 L 18 L (22-30) mmol/L BUN 35 H 38 H (7-17) mg/dL Creatinine 2.32 H 1.79 H (0.52-1.04) mg/dL Glucose 112 H 107 H (74-99) mg/dL Calcium 9.5 8.5 (8.4-10.2) mg/dL AST 25 24 (14-36) U/L ALT 26 20 (9-52) U/L Alkaline Phosphatase 151 H 122 (38-126) U/L Total Protein 6.5 5.8 L (6.3-8.2) g/dL Albumin 3.9 3.3 L (3.5-5.0) g/dL Calcium panel 02/12/18 02/13/18 Range/Units 14:55 07:12 Calcium 9.5 8.5 (8.4-10.2) mg/dL Albumin 3.9 3.3 L (3.5-5.0) g/dL Pituitary panel 02/12/18 02/13/18 Range/Units 14:55 07:12 Sodium 138 140 (137-145) mmol/L Potassium 5.1 4.4 (3.5-5.1) mmol/L Chloride 105 111 H (98-107) mmol/L Carbon Dioxide 21 L 18 L (22-30) mmol/L BUN 35 H 38 H (7-17) mg/dL Creatinine 2.32 H 1.79 H (0.52-1.04) mg/dL Glucose 112 H 107 H (74-99) mg/dL Calcium 9.5 8.5 (8.4-10.2) mg/dL Adrenal panel 02/12/18 02/13/18 Range/Units 14:55 07:12 Sodium 138 140 (137-145) mmol/L Potassium 5.1 4.4 (3.5-5.1) mmol/L Chloride 105 111 H (98-107) mmol/L Carbon Dioxide 21 L 18 L (22-30) mmol/L BUN 35 H 38 H (7-17) mg/dL Creatinine 2.32 H 1.79 H (0.52-1.04) mg/dL Glucose 112 H 107 H (74-99) mg/dL Calcium 9.5 8.5 (8.4-10.2) mg/dL Total Bilirubin 0.4 0.5 (0.2-1.3) mg/dL AST 25 24 (14-36) U/L ALT 26 20 (9-52) U/L Alkaline Phosphatase 151 H 122 (38-126) U/L Total Protein 6.5 5.8 L (6.3-8.2) g/dL Albumin 3.9 3.3 L (3.5-5.0) g/dL Assessment and Plan (1) Ileus Narrative/Plan: Patient with findings of probable colonic ileus on CAT scan. Begin daily Dulcolax. Increase activity and ambulation. Supportive antibiotics. Continue rehydration. Repeat abdominal x-rays tomorrow. Continue clear liquids only for now. Current Visit: Yes Status: Acute Code(s): K56.7 - ILEUS, UNSPECIFIED SNOMED Code(s): 408017387
[2018-02-13] MEDS: BISACODYL 10 MG SUPP RECTAL SCH (16:37)
[2018-02-13 17:28] LABS: Protein, Total 5.4 g/dL (6.2-8.2)
[2018-02-13] MEDS: LATANOPROST 0.005% OPHTH DROPS 2.5 ML BTL BOTH EYES SCH (20:23)
[2018-02-13] MEDS: PRAVASTATIN SODIUM 40 MG TAB PO SCH (20:24)
[2018-02-13] MEDS: SERTRALINE 50 MG TAB PO SCH (20:25)
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
--- NOTE | 2018-02-13 23:47 | P.CON ---
Consult Note - . Consult date: 02/13/18 Assessment/Plan:: This is an 88-year-old female patient with past medical history significant for multiple myeloma under the care of Dr. Jaquez. Patient states she has had ongoing problems with diarrhea on and off since she was diagnosed in March 2017 with multiple myeloma. She states this episode that was bad started on . She is having multiple watery stools. She denies any fever or chills. She did have nausea and vomiting which has been resolved with Zofran. She states this episode actually started first with vomiting and did this several times during the day and then diarrhea followed. She normally takes Imodium and keeps this under control but this episode was worse than usual. Patient denies having any blood or tarriness to her stools or emesis. She came into [facility] emergency center for evaluation. Temperature maximum 100.4, white count initially 79.3 is now 58 with hemoglobin of 9.5 and platelet count 123. Creatinine was initially 2.4 and now at 1.79. Lactic acid was 3.5 and is now 1.3 status post 1 L of IV fluids, ceftriaxone IV Tylenol and Protonix were all given in the emergency center. Alkaline phosphatase was also elevated 186 and repeat is 122. Albumin is 3.3. Chest x- ray shows borderline cardiomegaly and left lower base scarring. CAT scan of the abdomen and pelvis without contrast showed generalized ileus, probable fibroid uterus, left renal atrophy, some tiny right-sided effusion. General changes in wedge compression fractures in the lumbar spine appear chronic. Patient was placed on Zosyn and admitted to the oncology unit. There is consult in place with Dr. Jaquez and immunoglobulin, stool for CMV and protein electrophoresis have been ordered. There is also Giardia and cryptosporidium ordered. Urine culture and blood culture status received. Patient has been on Zosyn and this point, she states she is not feeling any better but her nausea is improved. She has had multiple bowel movements since admission. C. difficile toxin is negative. Influenza testing is negative. Please see the consult note is dictated by nurse practitioner Leahfrancia Contreras. As noted pleasant 88 neuro female presents to Hospital feeling quite poorly with abdominal pain some loose stools nausea and emesis. She's been seen by general surgery and there is evidence of an acute ileus and she is now on a small amount of clear liquid and a suppository to be placed to help with relief of what could be a partial obstruction. The patient has a profound leukocytosis was very concerning in a situation that could be potentially some ischemic colitis occurring. A leukemoid reaction is not unusual with C. diff infection however this is not being found at this time. Would continue antimicrobial therapy with Zosyn for now pending further culture results. Monitor leukocytosis. She's been closely monitored by general surgery. She also had evidence of acute renal failure that is starting to improve at this time. As noted influenza testing is negative. I agree with evaluation, assessment and plan is dictated by nurse practitioner Mrs. Leah Contreras.
--- NOTE | 2018-02-13 23:54 | PN ---
PROGRESS NOTE DATE OF SERVICE: 02/13/2018 PRESENTING COMPLAINT: Nausea, vomiting and diarrhea. INTERVAL HISTORY: This patient presented with a septic picture with elevated white count, clinical picture of severe gastroenteritis which could be viral, as C difficile was negative, and associated ileus. Patient empirically was put on IV Zosyn. Patient's abdomen feels a little bit less distended today; less pain. Had 2 or 3 loose stools. Getting IV fluids. Renal function is also improving, though slowly. REVIEW OF SYSTEMS: Done for constitutional, cardiovascular, GI, pulmonary; relevant findings as above. CURRENT MEDICATIONS: Reviewed. They include IV Zosyn, IV fluids. PHYSICAL EXAMINATION: Afebrile. Pulse 87, respiration 18, blood pressure 131/74, pulse ox 99% on room air. GENERAL APPEARANCE: Lying in bed, tired-appearing. EYES: Pupils equal. Conjunctivae pale. HEENT: External appearance of nose and ears normal. Oral cavity dry. NECK: JVD not raised. Mass not palpable. RESPIRATORY: Effort normal. LUNGS: Decreased breath sounds. CARDIOVASCULAR: First and second sounds normal. No edema. ABDOMEN: Slightly less distention. Decreased tenderness. Bowel sounds are present. Liver and spleen not palpable. PSYCHIATRY: Alert and oriented x3. Mood and affect normal. INVESTIGATIONS: White count 58, hemoglobin 9.5, platelets 123, potassium 4.4, BUN 38, creatinine 1.79. Stool was negative for ova and parasites. ASSESSMENT: 1. Acute septic gastroenteritis; could be viral in nature, though with a rather hefty white count, started to turn around. 2. Primary osteoarthritis. 3. Hypothyroidism. 4. 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 5. Bicytopenia, probably due to chemotherapy. 6. Metabolic acidosis from renal failure. 7. Acute ileus from severe gastroenteritis. 8. Chronic kidney disease, stage III. 9. Acute renal failure, probably prerenal, from diarrhea. PLAN: Continue with empiric antibiotics for now. IV fluids. Care was discussed with the patient. Questions were answered. Patient was seen by General Surgery and started on a clear liquid diet. Advance as tolerated. MMODL / IJN: [id number] /
[2018-02-14] MEDS: PIPERACILLIN-TAZOBACTAM 3.375 GM in DEXTROSE/WATER 1 50ML.BAG IVPB SCH ×3 (01:34→18:41)
[2018-02-14] MEDS: SODIUM CHLORIDE 0.9% 1,000 ML IV SCH ×3 (01:34→20:13)
--- NOTE | 2018-02-14 08:07 | XR ---
2 view abdomen HISTORY: Bowel obstruction, follow-up ileus 2 views of the abdomen submitted and correlated to prior abdomen and CT abdomen 02/12/2018 There are gas distended loops of small and large bowel present. No evident pneumoperitoneum. Vascular calcifications are noted. Spinal curvature, degenerative disc changes are again seen. Lung bases are clear. IMPRESSION: Findings could be due to ileus, correlate to exclude obstruction. Follow-up is recommende d.
[2018-02-14] MEDS: ACYCLOVIR 200 MG CAP PO SCH ×2 (08:19→20:05)
[2018-02-14] MEDS: PANTOPRAZOLE 40 MG/10 ML VIAL IVP SCH ×2 (08:19→20:06)
[2018-02-14] MEDS: MULTIVITAMINS, THERA 1 EACH TAB PO SCH (08:19)
[2018-02-14] MEDS: LEVOTHYROXINE 137 MCG TAB PO SCH (08:19)
[2018-02-14] MEDS: BRIMONIDINE TARTRATE 0.2% DROPS 5 ML BTL BOTH EYES SCH ×2 (08:20→20:06)
[2018-02-14] MEDS: DORZOLAMIDE HCL 2% DROPS 10 ML BTL BOTH EYES SCH ×2 (08:20→20:13)
[2018-02-14] MEDS: BISACODYL 10 MG SUPP RECTAL SCH (08:20)
[2018-02-14 09:32] LABS: Anisocytosis Moderate; HCT 26.5 % (34.0-46.0); HGB 8.6 gm/dL (11.4-16.0); Hypochromasia Moderate; MCH 35.2 pg (25.0-35.0); MCHC 32.6 g/dL (31.0-37.0); MCV 107.8 fL (80.0-100.0); Macrocytosis Marked; Mean Platelet Volume 7.8; Platelet Count 117 k/uL (150-450); RBC 2.45 m/uL (3.80-5.40); RDW 20.9 % (11.5-15.5)
[2018-02-14 09:47] LABS: Calcium 8.2 mg/dL (8.4-10.2); Potassium 3.7 mmol/L (3.5-5.1)
[2018-02-14 09:51] LABS: WBC 50.3 k/uL (3.8-10.6)
[2018-02-14 11:42] LABS: Band Neutrophils % 5 %; Lymphocytes # (M) 2.01 k/uL (1.0-4.8); Metamyelocytes # (M) 1.01 k/uL (0); Metamyelocytes % 2 %; Monocytes # (M) 2.01 k/uL (0-1.0); Myelocytes % 1 %; Neutrophils % (M) 85 %; Nucleated Red Blood Cells 0 /100 WBC (0-0); Total Cells Counted 200
[2018-02-14 11:42] LABS: Immunoglobulin A 28.4 mg/dL (60.0-350.0); Immunoglobulin M 19.5 mg/dL (40.0-280.0)
--- NOTE | 2018-02-14 13:22 | P.PN ---
Subjective Progress Note Date: 02/14/18 Principal diagnosis: Abdominal distention Patient still having some loose stools but has had more flatus. Admits to having some mild abdominal discomfort at times. Back pain is improved. White blood cell count remains elevated. Today's x-rays show small and large bowel distention although somewhat improved. She is afebrile. Objective - Vital Signs Vital signs: Vital Signs Temp 98 F 02/14/18 12:56 Pulse 81 02/14/18 12:56 Resp 16 02/14/18 12:56 BP 132/75 02/14/18 12:56 Pulse Ox 99 02/14/18 12:56 Intake & Output 02/13/18 02/14/18 02/14/18 18:59 06:59 18:59 Intake Total 1000 2140 Balance 1000 2140 Intake: Intake, IV Titration 1000 1550 Amount Piperacillin-Tazobactam 3 50 .375 gm In Dextrose/Water 1 50ml.bag @ 12.5 mls/hr IVPB Q8H [facility] Rx#: [id number] Sodium Chloride 0.9% 1, 1000 1500 000 ml @ 125 mls/hr IV . Q8H [facility] Rx#:[id number] Oral 590 Other: Voiding Method Bedside Commode Bedside Commode Diaper Diaper Diaper Incontinent Incontinent Incontinent # Voids 5 # Bowel Movements 2 5 - Exam Abdomen: Soft, distended, tympany present, overall distention slightly improved , minimal tenderness - Labs CBC & Chem 7: 02/14/18 09:02 02/14/18 09:02 Labs: Abnormal Lab Results - Last 24 Hours (Table) 02/13/18 02/13/18 02/14/18 Range/Units 07:12 07:12 09:02 WBC 50.3 H* (3.8-10.6) k/uL RBC 2.45 L (3.80-5.40) m/uL Hgb 8.6 L (11.4-16.0) gm/dL Hct 26.5 L (34.0-46.0) % MCV 107.8 H (80.0-100.0) fL MCH 35.2 H (25.0-35.0) pg RDW 20.9 H (11.5-15.5) % Plt Count 117 L (150-450) k/uL Neutrophils # (Manual) 45.20 H (1.3-7.7) k/uL Monocytes # (Manual) 2.01 H (0-1.0) k/uL Metamyelocytes # (Man) 1.01 H (0) k/uL Myelocytes # (Manual) 0.50 H (0) k/uL Chloride (98-107) mmol/L Carbon Dioxide (22-30) mmol/L BUN (7-17) mg/dL Creatinine (0.52-1.04) mg/dL Glucose (74-99) mg/dL Calcium (8.4-10.2) mg/dL Total Protein (PEP) 5.4 L (6.2-8.2) g/dL IgG 485.0 L (700.0-1600.0) mg/dL IgA 28.4 L (60.0-350.0) mg/dL IgM 19.5 L (40.0-280.0) mg/dL 02/14/18 Range/Units 09:02 WBC (3.8-10.6) k/uL RBC (3.80-5.40) m/uL Hgb (11.4-16.0) gm/dL Hct (34.0-46.0) % MCV (80.0-100.0) fL MCH (25.0-35.0) pg RDW (11.5-15.5) % Plt Count (150-450) k/uL Neutrophils # (Manual) (1.3-7.7) k/uL Monocytes # (Manual) (0-1.0) k/uL Metamyelocytes # (Man) (0) k/uL Myelocytes # (Manual) (0) k/uL Chloride 115 H (98-107) mmol/L Carbon Dioxide 16 L (22-30) mmol/L BUN 30 H (7-17) mg/dL Creatinine 1.11 H (0.52-1.04) mg/dL Glucose 114 H (74-99) mg/dL Calcium 8.2 L (8.4-10.2) mg/dL Total Protein (PEP) (6.2-8.2) g/dL IgG (700.0-1600.0) mg/dL IgA (60.0-350.0) mg/dL IgM (40.0-280.0) mg/dL Microbiology - Last 24 Hours (Table) 02/12/18 09:30 Blood Culture - Preliminary Blood No Growth after 48 hours 02/12/18 10:14 Urine Culture - Final Urine,Catheterized Assessment and Plan (1) Ileus Narrative/Plan: Today's x-rays seem mildly improved and the patient on examination seems improved as well. Continue clear liquids. Continue Reglan and Dulcolax. If symptoms persist we'll consider unprepped barium enema. Current Visit: Yes Status: Acute Code(s): K56.7 - ILEUS, UNSPECIFIED SNOMED Code(s): 769904995
[2018-02-14] MEDS: SERTRALINE 50 MG TAB PO SCH (20:05)
[2018-02-14] MEDS: PRAVASTATIN SODIUM 40 MG TAB PO SCH (20:05)
[2018-02-14] MEDS: ACETAMINOPHEN TAB 325 MG TAB PO PRN (20:05)
[2018-02-14] MEDS: LATANOPROST 0.005% OPHTH DROPS 2.5 ML BTL BOTH EYES SCH (20:06)
--- NOTE | 2018-02-14 22:40 | P.PN ---
Subjective Progress Note Date: 02/14/18 This is an 88-year-old female patient with past medical history significant for multiple myeloma under the care of Dr. Jaquez. Patient states she has had ongoing problems with diarrhea on and off since she was diagnosed in March 2017 with multiple myeloma. She states this episode that was bad started on . She is having multiple watery stools. She denies any fever or chills. She did have nausea and vomiting which has been resolved with Zofran. She states this episode actually started first with vomiting and did this several times during the day and then diarrhea followed. She normally takes Imodium and keeps this under control but this episode was worse than usual. Patient denies having any blood or tarriness to her stools or emesis. She came into [facility] emergency center for evaluation. Temperature maximum 100.4, white count initially 79.3 is now 58 with hemoglobin of 9.5 and platelet count 123. Creatinine was initially 2.4 and now at 1.79. Lactic acid was 3.5 and is now 1.3 status post 1 L of IV fluids, ceftriaxone IV Tylenol and Protonix were all given in the emergency center. Alkaline phosphatase was also elevated 186 and repeat is 122. Albumin is 3.3. Chest x- ray shows borderline cardiomegaly and left lower base scarring. CAT scan of the abdomen and pelvis without contrast showed generalized ileus, probable fibroid uterus, left renal atrophy, some tiny right-sided effusion. General changes in wedge compression fractures in the lumbar spine appear chronic. Patient was placed on Zosyn and admitted to the oncology unit. There is consult in place with Dr. Jaquez and immunoglobulin, stool for CMV and protein electrophoresis have been ordered. There is also Giardia and cryptosporidium ordered. Urine culture and blood culture status received. Patient has been on Zosyn and this point, she states she is not feeling any better but her nausea is improved. She has had multiple bowel movements since admission. C. difficile toxin is negative. Influenza testing is negative. 02/14/2018 reveals the patient be feeling slightly better today. However she is still having some distended abdomen as well as multiple loose stools and is feeling very weak. She's been evaluated by surgery as well as oncology. She is evidence of significant leukocytosis it appears to be a reactive phenomenon from her underlying ileus and abnormal bone marrow from her multiple myeloma. She is denying much fever is having some clear liquids only at this time. Objective - Vital Signs Vital signs: Vital Signs Temp 98.1 F 02/14/18 20:55 Pulse 80 02/14/18 20:55 Resp 16 02/14/18 20:55 BP 166/70 02/14/18 20:55 Pulse Ox 95 02/14/18 20:55 Intake & Output 02/14/18 02/14/18 02/15/18 06:59 18:59 06:59 Intake Total 2140 Balance 2140 Intake: Intake, IV Titration 1550 Amount Piperacillin-Tazobactam 3 50 .375 gm In Dextrose/Water 1 50ml.bag @ 12.5 mls/hr IVPB Q8H [facility] Rx#: [id number] Sodium Chloride 0.9% 1, 1500 000 ml @ 125 mls/hr IV . Q8H [facility] Rx#:[id number] Oral 590 Other: Voiding Method Bedside Commode Diaper Diaper Incontinent Incontinent # Voids 5 4 # Bowel Movements 5 7 1 - Exam Gen: This is an 88-year-old female. She appears to be uncomfortable and in bed. She is slightly thin-appearing. HEENT: Head is atraumatic, normocephalic. Pupils equal, round. Sclerae is anicteric. Mucous members of the mouth are slightly dry. No thrush noted. NECK: Supple. No JVD. No lymphadenopathy. No thyromegaly. LUNGS: Clear to auscultation. No wheezes or rhonchi. No intercostal retractions. HEART: Regular rate and rhythm. No murmur. ABDOMEN: The abdomen is soft it is still mildly distended there is some diffuse tenderness without palpable mass or organomegaly no guarding or rebound EXTREMITIES: No pedal edema. No calf tenderness. Dorsalis pedis +2 bilaterally. NEUROLOGICAL: Patient is awake, alert and oriented x3. - Labs CBC & Chem 7: 02/14/18 09:02 02/14/18 09:02 Labs: Abnormal Lab Results - Last 24 Hours (Table) 02/13/18 02/14/18 02/14/18 Range/Units 07:12 09:02 09:02 WBC 50.3 H* (3.8-10.6) k/uL RBC 2.45 L (3.80-5.40) m/uL Hgb 8.6 L (11.4-16.0) gm/dL Hct 26.5 L (34.0-46.0) % MCV 107.8 H (80.0-100.0) fL MCH 35.2 H (25.0-35.0) pg RDW 20.9 H (11.5-15.5) % Plt Count 117 L (150-450) k/uL Neutrophils # (Manual) 45.20 H (1.3-7.7) k/uL Monocytes # (Manual) 2.01 H (0-1.0) k/uL Metamyelocytes # (Man) 1.01 H (0) k/uL Myelocytes # (Manual) 0.50 H (0) k/uL Chloride 115 H (98-107) mmol/L Carbon Dioxide 16 L (22-30) mmol/L BUN 30 H (7-17) mg/dL Creatinine 1.11 H (0.52-1.04) mg/dL Glucose 114 H (74-99) mg/dL Calcium 8.2 L (8.4-10.2) mg/dL IgG 485.0 L (700.0-1600.0) mg/dL IgA 28.4 L (60.0-350.0) mg/dL IgM 19.5 L (40.0-280.0) mg/dL Microbiology - Last 24 Hours (Table) 02/12/18 09:30 Blood Culture - Preliminary Blood No Growth after 48 hours 02/12/18 10:14 Urine Culture - Final Urine,Catheterized Laboratory Results WBC 50.3 k/uL (3.8-10.6) H* 02/14/18 09:02 RBC 2.45 m/uL (3.80-5.40) L 02/14/18 09:02 Hgb 8.6 gm/dL (11.4-16.0) L 02/14/18 09:02 Hct 26.5 % (34.0-46.0) L 02/14/18 09:02 MCV 107.8 fL (80.0-100.0) H 02/14/18 09:02 MCH 35.2 pg (25.0-35.0) H 02/14/18 09:02 MCHC 32.6 g/dL (31.0-37.0) 02/14/18 09:02 RDW 20.9 % (11.5-15.5) H 02/14/18 09:02 Plt Count 117 k/uL (150-450) L 02/14/18 09:02 Neutrophils % (Manual) 85 % 02/14/18 09:02 Band Neutrophils % 5 % 02/14/18 09:02 Lymphocytes % (Manual) 4 % 02/14/18 09:02 Monocytes % (Manual) 4 % 02/14/18 09:02 Metamyelocytes % 2 % 02/14/18 09:02 Myelocytes % 1 % 02/14/18 09:02 Neutrophils # (Manual) 45.20 k/uL (1.3-7.7) H 02/14/18 09:02 Lymphocytes # (Manual) 2.01 k/uL (1.0-4.8) 02/14/18 09:02 Monocytes # (Manual) 2.01 k/uL (0-1.0) H 02/14/18 09:02 Metamyelocytes # (Man) 1.01 k/uL (0) H 02/14/18 09:02 Myelocytes # (Manual) 0.50 k/uL (0) H 02/14/18 09:02 Nucleated RBCs 0 /100 WBC (0-0) 02/14/18 09:02 Manual Slide Review Performed 02/14/18 09:02 Polychromasia Present 02/12/18 14:55 Hypochromasia Moderate 02/14/18 09:02 Anisocytosis Moderate 02/14/18 09:02 Macrocytosis Marked 02/14/18 09:02 PT 10.8 sec (9.0-12.0) 02/12/18 09:30 INR 1.1 (<1.2) 02/12/18 09:30 APTT 35.1 sec (22.0-30.0) H 02/12/18 09:30 Sodium 139 mmol/L (137-145) 02/14/18 09:02 Potassium 3.7 mmol/L (3.5-5.1) 02/14/18 09:02 Chloride 115 mmol/L (98-107) H 02/14/18 09:02 Carbon Dioxide 16 mmol/L (22-30) L 02/14/18 09:02 Anion Gap 8 mmol/L 02/14/18 09:02 BUN 30 mg/dL (7-17) H 02/14/18 09:02 Creatinine 1.11 mg/dL (0.52-1.04) H 02/14/18 09:02 Est GFR (CKD-EPI)AfAm 52 (>60 ml/min/1.73 sqM) 02/14/18 09:02 Est GFR (CKD-EPI)NonAf 45 (>60 ml/min/1.73 sqM) 02/14/18 09:02 Glucose 114 mg/dL (74-99) H 02/14/18 09:02 Lactic Ac Sepsis Rflx Y 02/12/18 11:32 Plasma Lactic Acid [place] 1.3 mmol/L (0.7-2.0) 02/12/18 15:37 Calcium 8.2 mg/dL (8.4-10.2) L 02/14/18 09:02 Magnesium 2.1 mg/dL (1.6-2.3) 02/13/18 07:12 Total Bilirubin 0.5 mg/dL (0.2-1.3) 02/13/18 07:12 AST 24 U/L (14-36) 02/13/18 07:12 ALT 20 U/L (9-52) 02/13/18 07:12 Alkaline Phosphatase 122 U/L (38-126) 02/13/18 07:12 Total Protein 5.8 g/dL (6.3-8.2) L 02/13/18 07:12 Total Protein (PEP) 5.4 g/dL (6.2-8.2) L 02/13/18 07:12 Albumin 3.3 g/dL (3.5-5.0) L 02/13/18 07:12 Amylase 65 U/L (30-110) 02/12/18 09:30 Lipase 63 U/L (23-300) 02/12/18 09:30 Urine Color Yellow 02/12/18 10:14 Urine Appearance Cloudy (Clear) H 02/12/18 10:14 Urine pH 5.0 (5.0-8.0) 02/12/18 10:14 Ur Specific [place] 1.016 (1.001-1.035) 02/12/18 10:14 Urine Protein Trace (Negative) H 02/12/18 10:14 Urine Glucose (UA) Negative (Negative) 02/12/18 10:14 Urine Ketones Negative (Negative) 02/12/18 10:14 Urine Blood Negative (Negative) 02/12/18 10:14 Urine Nitrite Negative (Negative) 02/12/18 10:14 Urine Bilirubin Negative (Negative) 02/12/18 10:14 Urine Urobilinogen <2.0 mg/dL (<2.0) 02/12/18 10:14 Ur Leukocyte Esterase Negative (Negative) 02/12/18 10:14 Urine RBC <1 /hpf (0-5) 02/12/18 10:14 Urine WBC <1 /hpf (0-5) 02/12/18 10:14 Ur Squamous Epith Cells <1 /hpf (0-4) 02/12/18 10:14 Urine Mucus Rare /hpf (None) H 02/12/18 10:14 Stl Cryptosporidium Ag Negative (Negative) 02/13/18 02:00 Stool Giardia Source Stool 02/13/18 02:00 Stl Giardia Antigen Negative (Negative) 02/13/18 02:00 IgG 485.0 mg/dL (700.0-1600.0) L 02/13/18 07:12 IgA 28.4 mg/dL (60.0-350.0) L 02/13/18 07:12 IgM 19.5 mg/dL (40.0-280.0) L 02/13/18 07:12 C. difficile Tox (PCR) Not Detected (Not Detectd) 02/12/18 15:37 Influenza Type A RNA Not Detected (Not Detectd) 02/13/18 09:25 Influenza Type B (PCR) Not Detected (Not Detectd) 02/13/18 09:25 Miscellaneous Test CMV PCR, Stool 02/13/18 09:06 Misc Test Result Cancelled 02/13/18 09:06 Blood Type O Positive 02/12/18 09:30 Blood Type Recheck No 02/12/18 09:30 Antibody Screen NEGATIVE 02/12/18 09:30 Spec Expiration Date 02/15/2018232902/12/18 09:30 Microbiology 02/12/18 09:30 Blood Blood Culture - Preliminary No Growth after 48 hours 02/12/18 10:14 Urine,Catheterized Urine Culture - Final Assessment and Plan (1) Multiple myeloma without remission Current Visit: No Status: Acute Priority: High Code(s): C90.00 - MULTIPLE MYELOMA NOT HAVING ACHIEVED REMISSION SNOMED Code(s): 260576698 (2) Ileus Current Visit: Yes Status: Acute Code(s): K56.7 - ILEUS, UNSPECIFIED SNOMED Code(s): 869611298 (3) Leukocytosis Narrative/Plan: As noted pleasant 88 neuro female presents to Hospital feeling quite poorly with abdominal pain some loose stools nausea and emesis. She's been seen by general surgery and there is evidence of an acute ileus and she is now on a small amount of clear liquid and a suppository to be placed to help with relief of what could be a partial obstruction. The patient has a profound leukocytosis was very concerning in a situation that could be potentially some ischemic colitis occurring. A leukemoid reaction is not unusual with C. diff infection however this is not being found at this time. Would continue antimicrobial therapy with Zosyn for now pending further culture results. Monitor leukocytosis. She's been closely monitored by general surgery. She also had evidence of acute renal failure that is starting to improve at this time. As noted influenza testing is negative. Today continues to have the abdominal x-ray findings with ileus and multiple loose stools. There is no evidence of any retained stool on the digital exam at the time of the suppository placement. The profound leukocytosis is definitely improving but is still in the 50 range. She does have abnormal bone marrow from her multiple myeloma. If she continues to have ongoing symptomatology there may be bowel obstruction resulting in ileus and may need endoscopic evaluation to further evaluate. Continue antibiotic therapy with Zosyn cultures in process. Current Visit: Yes Status: Acute Code(s): D72.829 - ELEVATED WHITE BLOOD CELL COUNT, UNSPECIFIED SNOMED Code(s): 354048781
--- NOTE | 2018-02-14 23:46 | PN ---
PROGRESS NOTE DATE OF SERVICE: 02/14/2018. PRESENTING COMPLAINT: Diarrhea. INTERVAL HISTORY: This patient with presented with a septic picture, severe gastroenteritis which well could be viral. C-diff was ruled out. Associated ileus. Empirically has been on IV Zosyn. The patient continues to have diarrhea, though somewhat better. Less nausea and vomiting, less abdominal distention, getting IV fluids. REVIEW OF SYSTEMS: Done for constitutional, cardiovascular, GI, pulmonary; relevant findings as above. The patient has had no further vomiting actually. CURRENT MEDICATIONS: Include IV fluids at 125 mL an hour and IV Zosyn. PHYSICAL EXAMINATION: Temperature 98, pulse 82, respirations 16, blood pressure 130/75, pulse ox 99% on room air. GENERAL APPEARANCE: Lying in bed, tired-appearing though a bit better than yesterday. EYES: Pupils equal. Conjunctivae pale. HEENT: External appearance of ears and nose normal. Oral cavity dry. NECK: JVD not raised. Mass not palpable. Respiratory effort normal. LUNGS: Decreased breath sounds. CARDIOVASCULAR: 1st and 2nd heart sounds normal. No edema. ABDOMEN: Less distended. Mild tenderness. Bowel sounds are present. Liver and spleen not palpable. PSYCHIATRY: Alert and oriented x3. Mood and affect normal. INVESTIGATIONS: White count 15.3, hemoglobin 8.6, platelets 117, potassium 3.7, chloride 117, BUN 30, creatinine 1.11. ASSESSMENT: 1. Acute septic gastroenteritis, likely viral in nature though patient has a rather significant white count, though no fever. That could be suppressed in immunosuppressed state. The patient does not appear to be toxic. Slow to respond. Still getting IV fluids. 2. Primary osteoarthritis. 3. Hypothyroidism. 4. 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 5. Bicytopenia, probably due to chemotherapy. 6. Metabolic acidosis, severe, from renal failure. 7. Acute ileus from severe gastroenteritis. 8. Chronic kidney disease stage 3. 9. Acute renal failure, prerenal from diarrhea, with improvement. PLAN: Continue with current medication and treatment plan. Continue with IV fluids. We will add sodium bicarb to the IV fluids. The patient is slowly responding. Continue current treatment plan. Follow. MMODL / IJN: [id number] /
[2018-02-14] MEDS: SODIUM CHLORIDE 0.9% 1,000 ML with SODIUM BICARB (1 MEQ/ML) 50 ML IV SCH ×2 (23:52)
[2018-02-15] MEDS: PIPERACILLIN-TAZOBACTAM 3.375 GM in DEXTROSE/WATER 1 50ML.BAG IVPB SCH ×2 (02:57→13:18)
[2018-02-15] MEDS: LEVOTHYROXINE 137 MCG TAB PO SCH (06:02)
[2018-02-15 07:40] LABS: Potassium 2.8 mmol/L (3.5-5.1)
[2018-02-15] MEDS: FAMOTIDINE 20 MG TAB PO SCH ×2 (09:05→21:00)
[2018-02-15] MEDS: MULTIVITAMINS, THERA 1 EACH TAB PO SCH (09:05)
[2018-02-15] MEDS: BRIMONIDINE TARTRATE 0.2% DROPS 5 ML BTL BOTH EYES SCH ×2 (09:05→20:57)
[2018-02-15] MEDS: DORZOLAMIDE HCL 2% DROPS 10 ML BTL BOTH EYES SCH ×2 (09:05→21:00)
[2018-02-15] MEDS: ACYCLOVIR 200 MG CAP PO SCH ×2 (09:05→20:57)
[2018-02-15] MEDS: SODIUM CHLORIDE 0.9% 1,000 ML with SODIUM BICARB (1 MEQ/ML) 50 ML IV SCH ×6 (09:06→23:12)
[2018-02-15] MEDS: BISACODYL 10 MG SUPP RECTAL SCH (09:06)
--- NOTE | 2018-02-15 11:31 | P.PN ---
Subjective Progress Note Date: 02/15/18 Principal diagnosis: Abdominal distention Patient states that she is doing well today. Denies abdominal pain. Tolerating clear liquids. Still with multiple loose stools. Some flatus. She has not been out of bed she states. Objective - Vital Signs Vital signs: Vital Signs Temp 98.4 F 02/15/18 04:39 Pulse 73 02/15/18 04:39 Resp 16 02/15/18 04:39 BP 146/67 02/15/18 04:39 Pulse Ox 95 02/15/18 04:39 Intake & Output 02/14/18 02/15/18 02/15/18 18:59 06:59 18:59 Intake Total 500 Balance 500 Intake: Intake, IV Titration 500 Amount Sodium Chloride 0.9% 1, 500 000 ml @ 125 mls/hr IV . Q8H24M [facility] with Sodium Bicarb (1 Meq/ml) 50 ml Rx#:[id number] Other: Voiding Method Diaper Diaper Diaper Incontinent Incontinent Incontinent # Voids 4 2 # Bowel Movements 7 1 - Exam Abdomen: Soft, distention persists however slightly improved. Still with tympany. Nontender - Labs CBC & Chem 7: 02/14/18 09:02 02/15/18 06:41 Labs: Abnormal Lab Results - Last 24 Hours (Table) 02/13/18 02/14/18 02/15/18 Range/Units 07:12 09:02 06:41 Neutrophils # (Manual) 45.20 H (1.3-7.7) k/uL Monocytes # (Manual) 2.01 H (0-1.0) k/uL Metamyelocytes # (Man) 1.01 H (0) k/uL Myelocytes # (Manual) 0.50 H (0) k/uL Potassium 2.8 L (3.5-5.1) mmol/L Chloride 116 H (98-107) mmol/L Carbon Dioxide 18 L (22-30) mmol/L Calcium 8.0 L (8.4-10.2) mg/dL IgG 485.0 L (700.0-1600.0) mg/dL IgA 28.4 L (60.0-350.0) mg/dL IgM 19.5 L (40.0-280.0) mg/dL Microbiology - Last 24 Hours (Table) 02/12/18 09:30 Blood Culture - Preliminary Blood No Growth after 48 hours Assessment and Plan (1) Ileus Narrative/Plan: Advance diet to full liquids. Ambulate. Continue antibiotics support. Repeat abdominal x-rays tomorrow. If abdominal distention persists will proceed with unprepped barium enema to rule out obstruction although seems unlikely. Current Visit: Yes Status: Acute Code(s): K56.7 - ILEUS, UNSPECIFIED SNOMED Code(s): 637756509
[2018-02-15 12:43] LABS: Gamma Globulin 0.45 g/dL (0.70-1.50)
[2018-02-15] MEDS: ACETAMINOPHEN TAB 325 MG TAB PO PRN ×2 (12:54→23:08)
--- NOTE | 2018-02-15 19:53 | PN ---
PROGRESS NOTE DATE OF SERVICE: 02/15/2018 PRESENTING COMPLAINT: Diarrhea. INTERVAL HISTORY: This patient presented with a septic picture, severe gastroenteritis which well could be viral. C difficile was ruled out. Associated ileus. Empirically patient has been on IV Zosyn. The patient's diarrhea slowed down. Abdominal distention is better. Lying in bed. Patient actually did walk in the hallway today. Son is at the bedside. Getting supportive fluids. REVIEW OF SYSTEMS: Done for constitutional, cardiovascular, GI, pulmonary; relevant findings as above. CURRENT MEDICATIONS: Reviewed. They include IV Zosyn and IV saline with sodium bicarb. PHYSICAL EXAMINATION: Temperature 98.1, pulse 93, respiration 18, blood pressure 123/64, pulse ox 96% on room air. GENERAL APPEARANCE: Lying in bed. Tired-appearing, though looking somewhat better. EYES: Pupils equal. Conjunctivae pale. HEENT: External appearance of nose and ears normal. Oral cavity dry. NECK: JVD not raised. Mass not palpable. RESPIRATORY: Effort normal. LUNGS: Decreased breath sounds. CARDIOVASCULAR: First and second sounds normal. No edema. ABDOMEN: Less distention. Bowel sounds are present. Liver and spleen not palpable. PSYCHIATRY: Alert and oriented x3. Mood and affect normal. INVESTIGATIONS: No CBC from today. Potassium 2.8, bicarb 18, BUN 14, creatinine 0.78. ASSESSMENT: 1. Acute septic gastroenteritis, likely viral in nature, with some improvement. 2. Acute ileus from severe gastroenteritis with clinical improvement. 3. Primary osteoarthritis. 4. Hypothyroidism. 5. 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 6. Bicytopenia, probably due to chemotherapy. 7. Metabolic acidosis, severe, from renal failure. 8. Acute ileus from severe gastroenteritis with clinical improvement. 9. Acute renal failure, prerenal, from diarrhea with some improvement. 10.Chronic kidney disease, stage III. 11.Multiple myeloma without remission, on active treatment. PLAN: Patient is slowly improving. Continue with IV fluids and bicarbonate support. The patient has already been out of bed. Abdomen is less distended. The patient was advanced to a full liquid diet today by Dr. Sanchez as tolerated. Repeat labs in the morning. MMODL / IJN: [id number] /
[2018-02-15] MEDS: PIPERACILLIN-TAZOBACTAM 3.375 GM in SODIUM CHLORIDE 0.9% 100 ML IVPB SCH (20:08)
--- NOTE | 2018-02-15 20:29 | P.PN ---
Subjective Progress Note Date: 02/15/18 Principal diagnosis: Ileus Patient seen and evaluated today, son at bedside. Objective - Vital Signs Vital signs: Vital Signs Temp 98.1 F 02/15/18 12:10 Pulse 93 02/15/18 12:10 Resp 18 02/15/18 12:10 BP 123/64 02/15/18 12:10 Pulse Ox 96 02/15/18 12:10 Intake & Output 02/15/18 02/15/18 02/16/18 06:59 18:59 06:59 Intake Total 500 1000 Balance 500 1000 Intake: Intake, IV Titration 500 1000 Amount Sodium Chloride 0.9% 1, 500 1000 000 ml @ 125 mls/hr IV . Q8H24M [facility] with Sodium Bicarb (1 Meq/ml) 50 ml Rx#:[id number] Other: Voiding Method Diaper Diaper Incontinent Incontinent # Voids 2 # Bowel Movements 1 1 - Exam Constitutional General appearance: no acute distress - EENT Eyes: EOMI, PERRLA ENT: hearing grossly normal, normal oropharynx - Neck Neck: no lymphadenopathy - Respiratory Respiratory: bilateral: CTA - Cardiovascular Rhythm: regular Heart sounds: normal: S1, S2 - Gastrointestinal General gastrointestinal: distended, hyperactive bowel sounds Localized gastrointestinal: tender: diffuse - Integumentary Integumentary: normal - Neurologic Neurologic: CNII-XII intact - Musculoskeletal Musculoskeletal: generalized weakness, strength equal bilaterally - Psychiatric Psychiatric: A&O x's 3, appropriate affect - Labs CBC & Chem 7: 02/14/18 09:02 02/15/18 06:41 Labs: Abnormal Lab Results - Last 24 Hours (Table) 02/13/18 02/15/18 Range/Units 07:12 06:41 Potassium 2.8 L (3.5-5.1) mmol/L Chloride 116 H (98-107) mmol/L Carbon Dioxide 18 L (22-30) mmol/L Calcium 8.0 L (8.4-10.2) mg/dL Albumin (PEP) 3.20 L (3.80-4.90) g/dL Gamma Globulins 0.45 L (0.70-1.50) g/dL Microbiology - Last 24 Hours (Table) 02/12/18 09:30 Blood Culture - Preliminary Blood No Growth after 72 hours Assessment and Plan Plan: Chest x-ray: report reviewed Abdominal x-ray: report reviewed CT scan - abdomen: report reviewed CT scan - pelvis: report reviewed Assessment and Plan (1) Ileus Narrative/Plan: - Continuing on empiric antibiotic. - No nausea or vomiting since admission, although abdomen still very distended and tender, Advance diet very cautiously. Continue IV hydration. Continue close monitoring Current Visit: Yes Status: Acute Code(s): K56.7 - ILEUS, UNSPECIFIED SNOMED Code(s): 696471970 (2) Acute kidney injury Narrative/Plan: This is due to dehydration. The patient has some baseline CK D. Creatinine is improving with hydration. Continue hydration, and continue to monitor - Recheck CMP in am Current Visit: Yes Status: Acute Code(s): N17.9 - ACUTE KIDNEY FAILURE, UNSPECIFIED SNOMED Code(s): 16889629 (3) Blood dyscrasia Narrative/Plan: the patient has marked leukocytosis as well as bicytopenia. The bicytopenia is more likely due to her underlying disease and ongoing treatment. The leukocytosis is due to neutrophilia and is most likely reactive. At this time all counts are in a safe range. Continue to monitor. - Order for CBC in am Current Visit: Yes Status: Acute Code(s): D75.9 - DISEASE OF BLOOD AND BLOOD -FORMING ORGANS, UNSPECIFIED SNOMED Code(s): 677299059 (4) Multiple myeloma without remission Narrative/Plan: Diagnostic and therapeutic circumstances as described. Patient's labs in the midst of cycle 2 had shown a response. She will continue treatment as an outpatient, assuming satisfactory resolution of her acute problem Her next cycle may need to be delayed due to her current admission. Repeat protein electrophoresis and immunoglobulin levels have been ordered. - IGG Level 485, mildly decreased will discuss with Dr. Jaquez if IVIG infusion will be ordered. Current Visit: No Status: Acute Priority: High Code(s): C90.00 - MULTIPLE MYELOMA NOT HAVING ACHIEVED REMISSION SNOMED Code(s): 732402046
[2018-02-15] MEDS: PRAVASTATIN SODIUM 40 MG TAB PO SCH (21:00)
[2018-02-15] MEDS: SERTRALINE 50 MG TAB PO SCH (21:00)
[2018-02-15] MEDS: LATANOPROST 0.005% OPHTH DROPS 2.5 ML BTL BOTH EYES SCH (21:04)
[2018-02-16] MEDS: PIPERACILLIN-TAZOBACTAM 3.375 GM in SODIUM CHLORIDE 0.9% 100 ML IVPB SCH ×3 (02:06→18:47)
[2018-02-16] MEDS: SODIUM CHLORIDE 0.9% 1,000 ML with SODIUM BICARB (1 MEQ/ML) 50 ML IV SCH ×4 (05:59→18:41)
[2018-02-16] MEDS: LEVOTHYROXINE 137 MCG TAB PO SCH (05:59)
--- NOTE | 2018-02-16 07:55 | XR ---
EXAMINATION TYPE: XR abdomen 2V DATE OF EXAM: 02/16/2018 COMPARISON: NONE HISTORY: Follow-up ileus TECHNIQUE: 2 views abdominal series FINDINGS: The osseous structures are intact. The bowel gas pattern is nonspecific. Persistent markedly dilated bowel loops with air-fluid levels. Right basilar infiltrate seen. Scoliosis with degenerative change of the spine and arthropathy of the hips. IMPRESSION: 1. Persistent marked dilation of bowel loops with air-fluid levels correlate for severe ileus versus obstruction. 2. Right basilar infiltrate.
[2018-02-16 08:45] LABS: Anisocytosis Moderate; HCT 27.3 % (34.0-46.0); HGB 8.9 gm/dL (11.4-16.0); Hypochromasia Slight; MCH 35.4 pg (25.0-35.0); MCHC 32.5 g/dL (31.0-37.0); MCV 108.9 fL (80.0-100.0); Macrocytosis Marked; Platelet Count 142 k/uL (150-450); RBC 2.51 m/uL (3.80-5.40); RDW 21.7 % (11.5-15.5); WBC 39.3 k/uL (3.8-10.6)
[2018-02-16 08:47] LABS: ALT 29 U/L (9-52); AST 28 U/L (14-36); Albumin 3.2 g/dL (3.5-5.0); Alkaline Phosphatase 85 U/L (38-126); Anion Gap 9 mmol/L; Blood Urea Nitrogen 9 mg/dL (7-17); Calcium 7.9 mg/dL (8.4-10.2); Carbon Dioxide 19 mmol/L (22-30); Chloride 115 mmol/L (98-107); Glucose 98 mg/dL (74-99); Magnesium 1.5 mg/dL (1.6-2.3); Sodium 143 mmol/L (137-145); Total Bilirubin 0.6 mg/dL (0.2-1.3); Total Protein 5.7 g/dL (6.3-8.2)
[2018-02-16 08:53] LABS: Potassium 2.7 mmol/L (3.5-5.1)
[2018-02-16] MEDS: ACYCLOVIR 200 MG CAP PO SCH ×2 (09:14→20:48)
[2018-02-16] MEDS: FAMOTIDINE 20 MG TAB PO SCH ×2 (09:14→20:49)
[2018-02-16] MEDS: DORZOLAMIDE HCL 2% DROPS 10 ML BTL BOTH EYES SCH ×2 (09:15→20:46)
[2018-02-16] MEDS: MULTIVITAMINS, THERA 1 EACH TAB PO SCH (09:15)
[2018-02-16] MEDS: BRIMONIDINE TARTRATE 0.2% DROPS 5 ML BTL BOTH EYES SCH ×2 (09:16→20:47)
[2018-02-16] MEDS: BISACODYL 10 MG SUPP RECTAL SCH (09:17)
[2018-02-16 09:55] LABS: Band Neutrophils % 4 %; Lymphocytes # (M) 3.14 k/uL (1.0-4.8); Metamyelocytes # (M) 0.39 k/uL (0); Metamyelocytes % 1 %; Monocytes # (M) 3.14 k/uL (0-1.0); Myelocytes # (M) 0.79 k/uL (0); Myelocytes % 2 %; Neutrophils % (M) 78 %; Nucleated Red Blood Cells 0 /100 WBC (0-0); Polychromasia Present; Total Cells Counted 200
[2018-02-16 09:56] LABS: Poikilocytosis (M) Present
--- NOTE | 2018-02-16 11:11 | P.PN ---
Subjective Progress Note Date: 02/16/18 Principal diagnosis: Ileus Sitting up in chair, still diarrhea. No vomting. Xray this am reviewed still identifying dilated loops concern for ileus versus obstruction. Objective - Vital Signs Vital signs: Vital Signs Temp 98.3 F 02/16/18 04:55 Pulse 74 02/16/18 04:55 Resp 16 02/16/18 04:55 BP 145/65 02/16/18 04:55 Pulse Ox 95 02/16/18 04:55 Intake & Output 02/15/18 02/16/18 02/16/18 18:59 06:59 18:59 Intake Total 1000 1940 Balance 1000 1940 Intake: Intake, IV Titration 1000 1700 Amount Piperacillin-Tazobactam 3 200 .375 gm In Sodium Chloride 0.9% 100 ml @ 25 mls/hr IVPB Q8H [facility] Rx#: [id number] Sodium Chloride 0.9% 1, 1000 1500 000 ml @ 125 mls/hr IV . Q8H24M [facility] with Sodium Bicarb (1 Meq/ml) 50 ml Rx#:[id number] Oral 240 Other: Voiding Method Diaper Diaper Bedside Commode Incontinent Incontinent Diaper Incontinent # Voids 3 # Bowel Movements 3 - Exam Constitutional General appearance: no acute distress - EENT Eyes: EOMI, PERRLA ENT: hearing grossly normal, normal oropharynx - Neck Neck: no lymphadenopathy - Respiratory Respiratory: bilateral: CTA - Cardiovascular Rhythm: regular Heart sounds: normal: S1, S2 - Gastrointestinal General gastrointestinal: distended, hyperactive bowel sounds Localized gastrointestinal: tender: diffuse - Integumentary Integumentary: normal - Neurologic Neurologic: CNII-XII intact - Musculoskeletal Musculoskeletal: generalized weakness, strength equal bilaterally - Psychiatric Psychiatric: A&O x's 3, appropriate affect - Labs CBC & Chem 7: 02/16/18 08:01 02/16/18 17:34 Labs: Abnormal Lab Results - Last 24 Hours (Table) 02/13/18 02/16/18 02/16/18 Range/Units 07:12 08:01 08:01 WBC 39.3 H (3.8-10.6) k/uL RBC 2.51 L (3.80-5.40) m/uL Hgb 8.9 L (11.4-16.0) gm/dL Hct 27.3 L (34.0-46.0) % MCV 108.9 H (80.0-100.0) fL MCH 35.4 H (25.0-35.0) pg RDW 21.7 H (11.5-15.5) % Plt Count 142 L (150-450) k/uL Neutrophils # (Manual) 32.20 H (1.3-7.7) k/uL Monocytes # (Manual) 3.14 H (0-1.0) k/uL Metamyelocytes # (Man) 0.39 H (0) k/uL Myelocytes # (Manual) 0.79 H (0) k/uL Potassium 2.7 L* (3.5-5.1) mmol/L Chloride 115 H (98-107) mmol/L Carbon Dioxide 19 L (22-30) mmol/L Calcium 7.9 L (8.4-10.2) mg/dL Magnesium 1.5 L (1.6-2.3) mg/dL Total Protein 5.7 L (6.3-8.2) g/dL Albumin 3.2 L (3.5-5.0) g/dL Albumin (PEP) 3.20 L (3.80-4.90) g/dL Gamma Globulins 0.45 L (0.70-1.50) g/dL Microbiology - Last 24 Hours (Table) 02/12/18 09:30 Blood Culture - Preliminary Blood No Growth after 72 hours Assessment and Plan Plan: Chest x-ray: report reviewed Abdominal x-ray: report reviewed CT scan - abdomen: report reviewed CT scan - pelvis: report reviewed Assessment and Plan (1) Ileus Narrative/Plan: - Continuing on empiric antibiotic. - No nausea or vomiting since admission, although abdomen still very distended and tender, Advance diet very cautiously. Continue IV hydration. Continue close monitoring Current Visit: Yes Status: Acute Code(s): K56.7 - ILEUS, UNSPECIFIED SNOMED Code(s): 771812016 (2) Acute kidney injury Narrative/Plan: This is due to dehydration. The patient has some baseline CK D. Creatinine is improving with hydration. Continue hydration, and continue to monitor - Recheck CMP in am Current Visit: Yes Status: Acute Code(s): N17.9 - ACUTE KIDNEY FAILURE, UNSPECIFIED SNOMED Code(s): 79150070 (3) Blood dyscrasia Narrative/Plan: the patient has marked leukocytosis as well as bicytopenia. The bicytopenia is more likely due to her underlying disease and ongoing treatment. The leukocytosis is due to neutrophilia and is most likely reactive. At this time all counts are in a safe range. Continue to monitor. - Order for CBC in am Current Visit: Yes Status: Acute Code(s): D75.9 - DISEASE OF BLOOD AND BLOOD -FORMING ORGANS, UNSPECIFIED SNOMED Code(s): 517426541 (4) Multiple myeloma without remission Narrative/Plan: Diagnostic and therapeutic circumstances as described. Patient's labs in the midst of cycle 2 had shown a response. She will continue treatment as an outpatient, assuming satisfactory resolution of her acute problem Her next cycle may need to be delayed due to her current admission. Repeat protein electrophoresis and immunoglobulin levels have been ordered. - IGG Level 485, mildly decreased although appears infectious peritoneum is less likely scenario so will hold off on IVIG at this time Current Visit: No Status: Acute Priority: High Code(s): C90.00 - MULTIPLE MYELOMA NOT HAVING ACHIEVED REMISSION SNOMED Code(s): 471833671 Plan: Overall her abdomen on exam is softer and less tender, no nausea and tolerating a full liquid diet. - COntinue supportive care and surgery team plan, planning on contrast enema in am - COntinue to monitor CBC and CMP - COntinue to encourage her to get up and move around to assist bowel recovery
[2018-02-16] MEDS: POTASSIUM CHLORIDE ER 20 MEQ TAB.ER PO SCH ×3 (13:04→15:58)
--- NOTE | 2018-02-16 13:41 | P.PN ---
Subjective Progress Note Date: 02/16/18 Principal diagnosis: Abdominal distention Patient sitting up in a chair. She was ambulating in the hallways earlier today. Still feels bloated. No nausea or vomiting. Tolerating full liquids. Today's x-rays continued to show distended bowel loops both colon and small bowel. Mechanical obstruction again commented upon by the radiologist as being within the differential. Objective - Vital Signs Vital signs: Vital Signs Temp 97.6 F 02/16/18 12:43 Pulse 82 02/16/18 12:43 Resp 16 02/16/18 12:43 BP 137/64 02/16/18 12:43 Pulse Ox 97 02/16/18 12:43 Intake & Output 02/15/18 02/16/18 02/16/18 18:59 06:59 18:59 Intake Total 1000 1940 Balance 1000 1940 Intake: Intake, IV Titration 1000 1700 Amount Piperacillin-Tazobactam 3 200 .375 gm In Sodium Chloride 0.9% 100 ml @ 25 mls/hr IVPB Q8H [facility] Rx#: [id number] Sodium Chloride 0.9% 1, 1000 1500 000 ml @ 125 mls/hr IV . Q8H24M [facility] with Sodium Bicarb (1 Meq/ml) 50 ml Rx#:[id number] Oral 240 Other: Voiding Method Diaper Diaper Bedside Commode Incontinent Incontinent Diaper Incontinent # Voids 3 # Bowel Movements 3 - Exam Soft, mild distention, tympany present, essentially unchanged, nontender - Labs CBC & Chem 7: 02/16/18 08:01 02/16/18 08:01 Labs: Abnormal Lab Results - Last 24 Hours (Table) 02/16/18 02/16/18 Range/Units 08:01 08:01 WBC 39.3 H (3.8-10.6) k/uL RBC 2.51 L (3.80-5.40) m/uL Hgb 8.9 L (11.4-16.0) gm/dL Hct 27.3 L (34.0-46.0) % MCV 108.9 H (80.0-100.0) fL MCH 35.4 H (25.0-35.0) pg RDW 21.7 H (11.5-15.5) % Plt Count 142 L (150-450) k/uL Neutrophils # (Manual) 32.20 H (1.3-7.7) k/uL Monocytes # (Manual) 3.14 H (0-1.0) k/uL Metamyelocytes # (Man) 0.39 H (0) k/uL Myelocytes # (Manual) 0.79 H (0) k/uL Potassium 2.7 L* (3.5-5.1) mmol/L Chloride 115 H (98-107) mmol/L Carbon Dioxide 19 L (22-30) mmol/L Calcium 7.9 L (8.4-10.2) mg/dL Magnesium 1.5 L (1.6-2.3) mg/dL Total Protein 5.7 L (6.3-8.2) g/dL Albumin 3.2 L (3.5-5.0) g/dL Microbiology - Last 24 Hours (Table) 02/12/18 09:30 Blood Culture - Preliminary Blood No Growth after 96 hours Assessment and Plan (1) Ileus Narrative/Plan: Will order unprepped contrast enema tomorrow to rule out distal colonic obstruction. If that study is normal resume diet and continue with supportive measures. We'll follow closely. Current Visit: Yes Status: Acute Code(s): K56.7 - ILEUS, UNSPECIFIED SNOMED Code(s): 986454886
[2018-02-16] MEDS: SERTRALINE 50 MG TAB PO SCH (20:49)
[2018-02-16] MEDS: PRAVASTATIN SODIUM 40 MG TAB PO SCH (20:49)
[2018-02-16] MEDS: LATANOPROST 0.005% OPHTH DROPS 2.5 ML BTL BOTH EYES SCH (20:50)
[2018-02-16] MEDS: PSYLLIUM HUSK 100% 6 GM PACKET PO SCH (22:04)
--- NOTE | 2018-02-16 23:38 | PN ---
PROGRESS NOTE DATE OF SERVICE: 02/16/2018. PRESENT COMPLAINT: Abdominal distention. INTERVAL HISTORY: This patient presented with a septic picture, severe gastroenteritis. It well could be viral. C diff was ruled out. The patient also had significant ileus and very elevated white count. Diarrhea is greatly improved, but today's x-ray still showing multiple air-fluid levels. Obstruction cannot entirely be ruled out. The patient was taking a full liquid diet. REVIEW OF SYSTEMS: Done for constitutional, cardiovascular, GI, pulmonary; relevant findings as above. The patient overall feeling much better. Sitting up on a chair. CURRENT MEDICATIONS: Reviewed, that include IV Zosyn. PHYSICAL EXAMINATION: Temperature 97.6, pulse 72, respirations 16, blood pressure 137/64, pulse ox 97% on room air. GENERAL APPEARANCE: Sitting up in a chair, looking much better. EYES: Pupils equal. Conjunctivae pale. HEENT: External appearance of nose and ears normal. Oral cavity normal. NECK: JVD not raised. Mass not palpable. Respiratory effort normal. LUNGS: Decreased breath sounds. CARDIOVASCULAR: 1st and 2nd sounds normal. No edema. ABDOMEN: Slight distention. Bowel sounds are hyperactive. No tenderness. Liver and spleen not palpable. PSYCHIATRY: Alert and oriented x3. Mood and affect normal. INVESTIGATIONS: White count 39.3, hemoglobin 8.9, platelets 142,000. Increased neutrophils. Potassium 2.7. ASSESSMENT: 1. Acute septic gastroenteritis, could be viral, with some improvement. 2. Acute ileus from severe gastroenteritis. Distal obstruction cannot be ruled out. 3. Severe hypokalemia from diarrhea. 4. Primary osteoarthritis. 5. Hypothyroidism. 6. 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 7. Bicytopenia probably due to chemotherapy. 8. Metabolic acidosis, severe from renal failure. 9. Acute renal failure from diarrhea with some improvement. 10.Chronic kidney disease stage 3. 11.Multiple myeloma without remission, on active treatment, causing renal failure. 12.Hyperchloremia. PLAN: Given the hypochloremia and hypokalemia, we will change the IV fluids to lactated Ringer's. The patient may have a barium study done tomorrow. The potassium is being aggressively replaced. Given that patient's creatinine is down to 0.7, the patient may not have a chronic renal failure component. Will determine this accordingly. MMODL / IJN: [id number] /
--- NOTE | 2018-02-17 00:44 | P.PN ---
Subjective Progress Note Date: 02/16/18 This is an 88-year-old female patient with past medical history significant for multiple myeloma under the care of Dr. Jaquez. Patient states she has had ongoing problems with diarrhea on and off since she was diagnosed in March 2017 with multiple myeloma. She states this episode that was bad started on . She is having multiple watery stools. She denies any fever or chills. She did have nausea and vomiting which has been resolved with Zofran. She states this episode actually started first with vomiting and did this several times during the day and then diarrhea followed. She normally takes Imodium and keeps this under control but this episode was worse than usual. Patient denies having any blood or tarriness to her stools or emesis. She came into [facility] emergency center for evaluation. Temperature maximum 100.4, white count initially 79.3 is now 58 with hemoglobin of 9.5 and platelet count 123. Creatinine was initially 2.4 and now at 1.79. Lactic acid was 3.5 and is now 1.3 status post 1 L of IV fluids, ceftriaxone IV Tylenol and Protonix were all given in the emergency center. Alkaline phosphatase was also elevated 186 and repeat is 122. Albumin is 3.3. Chest x- ray shows borderline cardiomegaly and left lower base scarring. CAT scan of the abdomen and pelvis without contrast showed generalized ileus, probable fibroid uterus, left renal atrophy, some tiny right-sided effusion. General changes in wedge compression fractures in the lumbar spine appear chronic. Patient was placed on Zosyn and admitted to the oncology unit. There is consult in place with Dr. Jaquez and immunoglobulin, stool for CMV and protein electrophoresis have been ordered. There is also Giardia and cryptosporidium ordered. Urine culture and blood culture status received. Patient has been on Zosyn and this point, she states she is not feeling any better but her nausea is improved. She has had multiple bowel movements since admission. C. difficile toxin is negative. Influenza testing is negative. 02/14/2018 reveals the patient be feeling slightly better today. However she is still having some distended abdomen as well as multiple loose stools and is feeling very weak. She's been evaluated by surgery as well as oncology. She is evidence of significant leukocytosis it appears to be a reactive phenomenon from her underlying ileus and abnormal bone marrow from her multiple myeloma. She is denying much fever is having some clear liquids only at this time. 02/16/2018 has been seen by surgery and barium contrast enema ordered given ongoing symptoms. Objective - Vital Signs Vital signs: Vital Signs Temp 98.1 F 02/16/18 21:00 Pulse 81 02/16/18 21:00 Resp 16 02/16/18 21:00 BP 165/74 02/16/18 21:00 Pulse Ox 94 L 02/16/18 21:00 Intake & Output 02/16/18 02/16/18 02/17/18 06:59 18:59 06:59 Intake Total 1940 590 Balance 1940 590 Intake: Intake, IV Titration 1700 Amount Piperacillin-Tazobactam 3 200 .375 gm In Sodium Chloride 0.9% 100 ml @ 25 mls/hr IVPB Q8H [facility] Rx#: [id number] Sodium Chloride 0.9% 1, 1500 000 ml @ 125 mls/hr IV . Q8H24M [facility] with Sodium Bicarb (1 Meq/ml) 50 ml Rx#:[id number] Oral 240 590 Other: Voiding Method Diaper Bedside Commode Bedside Commode Incontinent Diaper Diaper Incontinent Incontinent # Voids 3 3 2 # Bowel Movements 3 2 2 - Exam Gen: This is an 88-year-old female. She appears to be uncomfortable and in bed. She is slightly thin-appearing. HEENT: Head is atraumatic, normocephalic. Pupils equal, round. Sclerae is anicteric. Mucous members of the mouth are slightly dry. No thrush noted. NECK: Supple. No JVD. No lymphadenopathy. No thyromegaly. LUNGS: Clear to auscultation. No wheezes or rhonchi. No intercostal retractions. HEART: Regular rate and rhythm. No murmur. ABDOMEN: The abdomen is soft it is still mildly distended there is some diffuse tenderness without palpable mass or organomegaly no guarding or rebound EXTREMITIES: No pedal edema. No calf tenderness. Dorsalis pedis +2 bilaterally. NEUROLOGICAL: Patient is awake, alert and oriented x3. - Labs CBC & Chem 7: 02/16/18 08:01 02/16/18 17:34 Labs: Abnormal Lab Results - Last 24 Hours (Table) 02/16/18 02/16/18 Range/Units 08: 08:01 WBC 39.3 H (3.8-10.6) k/uL RBC 2.51 L (3.80-5.40) m/uL Hgb 8.9 L (11.4-16.0) gm/dL Hct 27.3 L (34.0-46.0) % MCV 108.9 H (80.0-100.0) fL MCH 35.4 H (25.0-35.0) pg RDW 21.7 H (11.5-15.5) % Plt Count 142 L (150-450) k/uL Neutrophils # (Manual) 32.20 H (1.3-7.7) k/uL Monocytes # (Manual) 3.14 H (0-1.0) k/uL Metamyelocytes # (Man) 0.39 H (0) k/uL Myelocytes # (Manual) 0.79 H (0) k/uL Potassium 2.7 L* (3.5-5.1) mmol/L Chloride 115 H (98-107) mmol/L Carbon Dioxide 19 L (22-30) mmol/L Calcium 7.9 L (8.4-10.2) mg/dL Magnesium 1.5 L (1.6-2.3) mg/dL Total Protein 5.7 L (6.3-8.2) g/dL Albumin 3.2 L (3.5-5.0) g/dL Microbiology - Last 24 Hours (Table) 02/12/18 09:30 Blood Culture - Preliminary Blood No Growth after 96 hours Laboratory Results WBC 39.3 k/uL (3.8-10.6) H 02/16/18 08:01 RBC 2.51 m/uL (3.80-5.40) L 02/16/18 08:01 Hgb 8.9 gm/dL (11.4-16.0) L 02/16/18 08:01 Hct 27.3 % (34.0-46.0) L 02/16/18 08:01 MCV 108.9 fL (80.0-100.0) H 02/16/18 08:01 MCH 35.4 pg (25.0-35.0) H 02/16/18 08:01 MCHC 32.5 g/dL (31.0-37.0) 02/16/18 08:01 RDW 21.7 % (11.5-15.5) H 02/16/18 08:01 Plt Count 142 k/uL (150-450) L 02/16/18 08:01 Neutrophils % (Manual) 78 % 02/16/18 08:01 Band Neutrophils % 4 % 02/16/18 08:01 Lymphocytes % (Manual) 8 % 02/16/18 08:01 Monocytes % (Manual) 8 % 02/16/18 08:01 Metamyelocytes % 1 % 02/16/18 08:01 Myelocytes % 2 % 02/16/18 08:01 Neutrophils # (Manual) 32.20 k/uL (1.3-7.7) H 02/16/18 08:01 Lymphocytes # (Manual) 3.14 k/uL (1.0-4.8) 02/16/18 08:01 Monocytes # (Manual) 3.14 k/uL (0-1.0) H 02/16/18 08:01 Metamyelocytes # (Man) 0.39 k/uL (0) H 02/16/18 08:01 Myelocytes # (Manual) 0.79 k/uL (0) H 02/16/18 08:01 Nucleated RBCs 0 /100 WBC (0-0) 02/16/18 08:01 Manual Slide Review Performed 02/16/18 08:01 Polychromasia Present 02/16/18 08:01 Hypochromasia Slight 02/16/18 08:01 Poikilocytosis (manual Present 02/16/18 08:01 Anisocytosis Moderate 02/16/18 08:01 Macrocytosis Marked 02/16/18 08:01 PT 10.8 sec (9.0-12.0) 02/12/18 09:30 INR 1.1 (<1.2) 02/12/18 09:30 APTT 35.1 sec (22.0-30.0) H 02/12/18 09:30 Sodium 143 mmol/L (137-145) 02/16/18 08:01 Potassium 3.5 mmol/L (3.5-5.1) 02/16/18 17:34 Chloride 115 mmol/L (98-107) H 02/16/18 08:01 Carbon Dioxide 19 mmol/L (22-30) L 02/16/18 08:01 Anion Gap 9 mmol/L 02/16/18 08:01 BUN 9 mg/dL (7-17) 02/16/18 08:01 Creatinine 0.70 mg/dL (0.52-1.04) 02/16/18 08:01 Est GFR (CKD-EPI)AfAm >90 (>60 ml/min/1.73 sqM) 02/16/18 08:01 Est GFR (CKD-EPI)NonAf 79 (>60 ml/min/1.73 sqM) 02/16/18 08:01 Glucose 98 mg/dL (74-99) 02/16/18 08:01 Lactic Ac Sepsis Rflx Y 02/12/18 11:32 Plasma Lactic Acid Albert 1.3 mmol/L (0.7-2.0) 02/12/18 15:37 Calcium 7.9 mg/dL (8.4-10.2) L 02/16/18 08:01 Magnesium 1.5 mg/dL (1.6-2.3) L 02/16/18 08:01 Total Bilirubin 0.6 mg/dL (0.2-1.3) 02/16/18 08:01 AST 28 U/L (14-36) 02/16/18 08:01 ALT 29 U/L (9-52) 02/16/18 08:01 Alkaline Phosphatase 85 U/L (38-126) 02/16/18 08:01 Total Protein 5.7 g/dL (6.3-8.2) L 02/16/18 08:01 Total Protein (PEP) 5.4 g/dL (6.2-8.2) L 02/13/18 07:12 Albumin 3.2 g/dL (3.5-5.0) L 02/16/18 08:01 Albumin (PEP) 3.20 g/dL (3.80-4.90) L 02/13/18 07:12 Iheab-3-Ggwsfhrtw 0.25 g/dL (0.10-0.40) 02/13/18 07:12 Vabqv-4-Kytztkxvz 0.82 g/dL (0.60-1.00) 02/13/18 07:12 Beta Globulins 0.69 g/dL (0.60-1.30) 02/13/18 07:12 Gamma Globulins 0.45 g/dL (0.70-1.50) L 02/13/18 07:12 PEP Interpretation see comment 02/13/18 07:12 Amylase 65 U/L (30-110) 02/12/18 09:30 Lipase 63 U/L (23-300) 02/12/18 09:30 Urine Color Yellow 02/12/18 10:14 Urine Appearance Cloudy (Clear) H 02/12/18 10:14 Urine pH 5.0 (5.0-8.0) 02/12/18 10:14 Ur Specific Rankin 1.016 (1.001-1.035) 02/12/18 10:14 Urine Protein Trace (Negative) H 02/12/18 10:14 Urine Glucose (UA) Negative (Negative) 02/12/18 10:14 Urine Ketones Negative (Negative) 02/12/18 10:14 Urine Blood Negative (Negative) 02/12/18 10:14 Urine Nitrite Negative (Negative) 02/12/18 10:14 Urine Bilirubin Negative (Negative) 02/12/18 10:14 Urine Urobilinogen <2.0 mg/dL (<2.0) 02/12/18 10:14 Ur Leukocyte Esterase Negative (Negative) 02/12/18 10:14 Urine RBC <1 /hpf (0-5) 02/12/18 10:14 Urine WBC <1 /hpf (0-5) 02/12/18 10:14 Ur Squamous Epith Cells <1 /hpf (0-4) 02/12/18 10:14 Urine Mucus Rare /hpf (None) H 02/12/18 10:14 Stl Cryptosporidium Ag Negative (Negative) 02/13/18 02:00 Stool Giardia Source Stool 02/13/18 02:00 Stl Giardia Antigen Negative (Negative) 02/13/18 02:00 IgG 485.0 mg/dL (700.0-1600.0) L 02/13/18 07:12 IgA 28.4 mg/dL (60.0-350.0) L 02/13/18 07:12 IgM 19.5 mg/dL (40.0-280.0) L 02/13/18 07:12 C. difficile Tox (PCR) Not Detected (Not Detectd) 02/12/18 15:37 Influenza Type A RNA Not Detected (Not Detectd) 02/13/18 09:25 Influenza Type B (PCR) Not Detected (Not Detectd) 02/13/18 09:25 Miscellaneous Test CMV PCR, Stool 02/13/18 09:06 Misc Test Result Cancelled 02/13/18 09:06 Blood Type O Positive 02/12/18 09:30 Blood Type Recheck No 02/12/18 09:30 Antibody Screen NEGATIVE 02/12/18 09:30 Spec Expiration Date 02/15/2018232902/12/18 09:30 Microbiology 02/12/18 09:30 Blood Blood Culture - Preliminary No Growth after 96 hours 02/12/18 10:14 Urine,Catheterized Urine Culture - Final Assessment and Plan (1) Multiple myeloma without remission Current Visit: No Status: Acute Priority: High Code(s): C90.00 - MULTIPLE MYELOMA NOT HAVING ACHIEVED REMISSION SNOMED Code(s): 490873612 (2) Ileus Current Visit: Yes Status: Acute Code(s): K56.7 - ILEUS, UNSPECIFIED SNOMED Code(s): 235557301 (3) Leukocytosis Narrative/Plan: As noted pleasant 88 neuro female presents to Hospital feeling quite poorly with abdominal pain some loose stools nausea and emesis. She's been seen by general surgery and there is evidence of an acute ileus and she is now on a small amount of clear liquid and a suppository to be placed to help with relief of what could be a partial obstruction. The patient has a profound leukocytosis was very concerning in a situation that could be potentially some ischemic colitis occurring. A leukemoid reaction is not unusual with C. diff infection however this is not being found at this time. Would continue antimicrobial therapy with Zosyn for now pending further culture results. Monitor leukocytosis. She's been closely monitored by general surgery. She also had evidence of acute renal failure that is starting to improve at this time. As noted influenza testing is negative. Today continues to have the abdominal x-ray findings with ileus and multiple loose stools. There is no evidence of any retained stool on the digital exam at the time of the suppository placement. The profound leukocytosis is definitely improving but is still in the 50 range. She does have abnormal bone marrow from her multiple myeloma. If she continues to have ongoing symptomatology there may be bowel obstruction resulting in ileus and may need endoscopic evaluation to further evaluate. Continue antibiotic therapy with Zosyn cultures in process. 02/16/2018 patients son is present and understands plan as to barium enema and then determine what should occur next, likely will not accept surgcial plan. Has multiple myeloma and the leukemoid reaction is improving. Current Visit: Yes Status: Acute Code(s): D72.829 - ELEVATED WHITE BLOOD CELL COUNT, UNSPECIFIED SNOMED Code(s): 311886084
[2018-02-17] MEDS: LACTATED RINGERS 1,000 ML IV SCH ×3 (01:05→18:09)
[2018-02-17] MEDS: PIPERACILLIN-TAZOBACTAM 3.375 GM in SODIUM CHLORIDE 0.9% 100 ML IVPB SCH ×4 (02:36→19:11)
[2018-02-17 04:22] LABS: Anion Gap 6 mmol/L; Blood Urea Nitrogen 8 mg/dL (7-17); Calcium 8.2 mg/dL (8.4-10.2); Carbon Dioxide 18 mmol/L (22-30); Chloride 116 mmol/L (98-107); Glucose 104 mg/dL (74-99); Potassium 3.7 mmol/L (3.5-5.1); Sodium 140 mmol/L (137-145)
[2018-02-17] MEDS: SODIUM BICARBONATE TAB 650 MG TAB PO SCH ×4 (09:00→20:57)
[2018-02-17] MEDS: BRIMONIDINE TARTRATE 0.2% DROPS 5 ML BTL BOTH EYES SCH ×2 (10:20→20:56)
[2018-02-17] MEDS: BISACODYL 10 MG SUPP RECTAL SCH (10:20)
[2018-02-17] MEDS: DORZOLAMIDE HCL 2% DROPS 10 ML BTL BOTH EYES SCH ×2 (10:21→20:56)
[2018-02-17] MEDS: LEVOTHYROXINE 137 MCG TAB PO SCH (10:22)
[2018-02-17] MEDS: ACYCLOVIR 200 MG CAP PO SCH ×2 (10:22→20:57)
[2018-02-17] MEDS: FAMOTIDINE 20 MG TAB PO SCH ×2 (10:22→20:59)
[2018-02-17] MEDS: PSYLLIUM HUSK 100% 6 GM PACKET PO SCH ×2 (10:23→20:55)
[2018-02-17] MEDS: MULTIVITAMINS, THERA 1 EACH TAB PO SCH (10:23)
[2018-02-17] MEDS: ACETAMINOPHEN TAB 325 MG TAB PO PRN ×2 (10:36→20:58)
--- NOTE | 2018-02-17 10:50 | FL ---
"EXAMINATION TYPE: FL barium enema DATE OF EXAM: 02/17/2018 COMPARISON: CT abdomen pelvis dated 02/04/2018 HISTORY: Concern for distal colonic obstruction. Abdominal pain and colonic distention. TECHNIQUE: A single contrast barium enema study is performed. 1 minute and 42 seconds of fluoroscopy time was utilized with 24 fluoroscopic images saved. FINDINGS: Founder Chairman And Chief Creative Officer view of the abdomen shows gaseous dilation of the entirety of the colon and multiple loops of small bowel without gross peritoneum. Despite 2 attempts there is nonprogression of contrast flow at the distal sigmoid colon. No focal noah lili to suggest volvulus. There is progressive dilatation of the rectum throughout the examination beltran ggesting distal bowel obstruction. Numerous sigmoid diverticula are seen and therefore point of obstr uction could be on the basis of sigmoid stricture from chronic diverticulitis or colonic mass. No ext ravasation of contrast was appreciated nor rectal mass. IMPRESSION: Findings indicative of mechanical distal sigmoid colonic obstruction with abrupt cessati on of contrast flow at the distal sigmoid colon and progressive rectal dilatation. Two attempts were made as well as prolonged examination time to ensure this did not represent severe colonic spasm. A Yellow level critical message alert has been initiated for Dhruv Sanchez MD~[id number] via the [employer] | Critical Results System on 02/17/2018 10:48 AM. This message alert has been sent to Dhruv Sanchez MD~RADHA via the preferences provided by the clinician for the receipt of Radiology Critical Findings. Message ID [id number]."
[2018-02-17 13:30] LABS: INR 1.2 (<1.2); Partial Thromboplastin Time 32.8 sec (22.0-30.0); Prothrombin Time 11.3 sec (9.0-12.0)
[2018-02-17] MEDS ORDERED: SODIUM CHLORIDE 0.9% 1,000 ML IV SCH (17:45)
--- NOTE | 2018-02-17 18:31 | P.PN ---
Subjective Progress Note Date: 02/17/18 Principal diagnosis: Abdominal distention Patient without new symptoms today. She went down for her barium enema earlier this morning. Unfortunately the barium enema does suggest the presence of a complete or high-grade distal colonic obstruction. Denies nausea or vomiting. Minimal discomfort. Objective - Vital Signs Vital signs: Vital Signs Temp 97.9 F 02/17/18 12:05 Pulse 77 02/17/18 12:05 Resp 16 02/17/18 12:05 BP 132/74 02/17/18 12:05 Pulse Ox 96 02/17/18 12:05 Intake & Output 02/16/18 02/17/18 02/17/18 18:59 06:59 18:59 Intake Total 2430 1200 Balance 2430 1200 Weight 63.276 kg Intake: Intake, IV Titration 1600 1200 Amount Lactated Ringers 1,000 ml 1500 1200 @ 125 mls/hr IV .Q8H [facility] Rx#:[id number] Piperacillin-Tazobactam 3 100 .375 gm In Sodium Chloride 0.9% 100 ml @ 25 mls/hr IVPB Q8H [facility] Rx#: [id number] Oral 830 Other: Voiding Method Bedside Commode Bedside Commode Bedside Commode Diaper Diaper Diaper Incontinent Incontinent Incontinent # Voids 3 2 3 # Bowel Movements 2 1 - Exam Abdomen: Soft, minimally tender, distended with tympany - Labs CBC & Chem 7: 02/16/18 08:01 02/17/18 03:42 Labs: Abnormal Lab Results - Last 24 Hours (Table) 02/17/18 02/17/18 02/17/18 Range/Units 03:42 03:42 13:00 INR 1.2 H (<1.2) APTT 33.4 H 32.8 H (22.0-30.0) sec Chloride 116 H (98-107) mmol/L Carbon Dioxide 18 L (22-30) mmol/L Glucose 104 H (74-99) mg/dL Calcium 8.2 L (8.4-10.2) mg/dL Microbiology - Last 24 Hours (Table) 02/12/18 09:30 Blood Culture - Preliminary Blood No Growth after 120 hours Assessment and Plan (1) Ileus Narrative/Plan: Clinical scenario discussed in detail with the patient and her family. Options diverting ostomy, partial colectomy, or even colonic stent placement reviewed. The patient and her family had a discussion regarding these findings along with her underlying myeloma diagnosis with oncology. The patient since then has decided to decline surgical intervention and is currently considering hospice. After that decision was made I did speak with the patient and her family once again and all questions were answered. We'll reevaluate tomorrow. Current Visit: Yes Status: Acute Code(s): K56.7 - ILEUS, UNSPECIFIED SNOMED Code(s): 665502178
--- NOTE | 2018-02-17 19:03 | P.PN ---
Subjective Progress Note Date: 02/17/18 Principal diagnosis: Ileus, bowel obstruction multiple myeloma. Patient family at bedside, long discussion regarding need for surgical intervention. With patients advanced age, decreased quality of life from co- morbidities she is considering to forgo surgery and sign with hospice care. Dr. Jaquez had greater than 30 minute discussion regarding this with patient and family and her decision has been to not do surgery. Objective - Vital Signs Vital signs: Vital Signs Temp 97.9 F 02/17/18 12:05 Pulse 77 02/17/18 12:05 Resp 16 02/17/18 12:05 BP 132/74 02/17/18 12:05 Pulse Ox 96 02/17/18 12:05 Intake & Output 02/16/18 02/17/18 02/17/18 18:59 06:59 18:59 Intake Total 2430 Balance 2430 Weight 63.276 kg Intake: Intake, IV Titration 1600 Amount Lactated Ringers 1,000 ml 1500 @ 125 mls/hr IV .Q8H [facility] Rx#:[id number] Piperacillin-Tazobactam 3 100 .375 gm In Sodium Chloride 0.9% 100 ml @ 25 mls/hr IVPB Q8H [facility] Rx#: [id number] Oral 830 Other: Voiding Method Bedside Commode Bedside Commode Bedside Commode Diaper Diaper Diaper Incontinent Incontinent Incontinent # Voids 3 2 # Bowel Movements 2 1 - Exam Constitutional General appearance: no acute distress - EENT Eyes: EOMI, PERRLA ENT: hearing grossly normal, normal oropharynx - Neck Neck: no lymphadenopathy - Respiratory Respiratory: bilateral: CTA - Cardiovascular Rhythm: regular Heart sounds: normal: S1, S2 - Gastrointestinal General gastrointestinal: distended, hyperactive bowel sounds Localized gastrointestinal: tender: diffuse - Integumentary Integumentary: normal - Neurologic Neurologic: CNII-XII intact - Musculoskeletal Musculoskeletal: generalized weakness, strength equal bilaterally - Psychiatric Psychiatric: A&O x's 3, appropriate affect - Labs CBC & Chem 7: 02/16/18 08:01 02/17/18 03:42 Labs: Abnormal Lab Results - Last 24 Hours (Table) 02/17/18 02/17/18 02/17/18 Range/Units 03:42 03:42 13:00 INR 1.2 H (<1.2) APTT 33.4 H 32.8 H (22.0-30.0) sec Chloride 116 H (98-107) mmol/L Carbon Dioxide 18 L (22-30) mmol/L Glucose 104 H (74-99) mg/dL Calcium 8.2 L (8.4-10.2) mg/dL Microbiology - Last 24 Hours (Table) 02/12/18 09:30 Blood Culture - Preliminary Blood No Growth after 120 hours Assessment and Plan Plan: Chest x-ray: report reviewed Abdominal x-ray: report reviewed CT scan - abdomen: report reviewed CT scan - pelvis: report reviewed Assessment and Plan (1) Ileus/Bowel Obstruction Narrative/Plan: - Not improving requiring surgical intervention Current Visit: Yes Status: Acute Code(s): K56.7 - ILEUS, UNSPECIFIED SNOMED Code(s): 572409024 (2) Acute kidney injury Narrative/Plan: This is due to dehydration. The patient has some baseline CKD. Creatinine is improving with hydration. Continue hydration, and continue to monitor Current Visit: Yes Status: Acute Code(s): N17.9 - ACUTE KIDNEY FAILURE, UNSPECIFIED SNOMED Code(s): 68638214 (3) Blood dyscrasia Narrative/Plan: the patient has marked leukocytosis as well as bicytopenia. The bicytopenia is more likely due to her underlying disease and ongoing treatment. The leukocytosis is due to neutrophilia and is most likely reactive. At this time all counts are in a safe range. Current Visit: Yes Status: Acute Code(s): D75.9 - DISEASE OF BLOOD AND BLOOD -FORMING ORGANS, UNSPECIFIED SNOMED Code(s): 630554176 (4) Multiple myeloma without remission Narrative/Plan: Diagnostic and therapeutic circumstances as described. Patient's labs in the midst of cycle 2 had shown a response. She will continue treatment as an outpatient, assuming satisfactory resolution of her acute problem Her next cycle may need to be delayed due to her current admission. Repeat protein electrophoresis and immunoglobulin levels have been ordered. - IGG Level 485, mildly decreased although appears infectious peritoneum is less likely scenario so will hold off on IVIG at this time Current Visit: No Status: Acute Priority: High Code(s): C90.00 - MULTIPLE MYELOMA NOT HAVING ACHIEVED REMISSION SNOMED Code(s): 657550183 Plan: Long discussion with patient and family. Patient feels she has no quality of life with underlying diagnosis of Multple Myeloma and has chosen to move foreward with hospice care - Will not have surgery and consult hospice, DNR placed and comfort orders - Discussed wit primary team Physician Attestation: I have completed the full history and physical and agtree with above dictation by Laya Diane [employer], dictated as a scribe
[2018-02-17] MEDS: LATANOPROST 0.005% OPHTH DROPS 2.5 ML BTL BOTH EYES SCH (20:56)
[2018-02-17] MEDS: PRAVASTATIN SODIUM 40 MG TAB PO SCH (20:57)
[2018-02-17] MEDS: SERTRALINE 50 MG TAB PO SCH (20:59)
[2018-02-17 21:14] VITALS: TEMP 98.3
--- NOTE | 2018-02-17 22:40 | PN ---
PROGRESS NOTE DATE OF SERVICE: 02/17/2018 PRESENTING COMPLAINT: Abdominal distention. INTERVAL HISTORY: This patient presented with diarrhea, nausea, vomiting. C dif was ruled out. The patient did undergo a barium enema, found to have high-grade distal obstruction. Dr. Sanchez had already spoken to the patient. Given the option of a diverting ostomy. The patient when came in at this point, was not sure what to do. Still the abdomen was distended. Small amount of stool. No nausea, vomiting, abdominal discomfort. REVIEW OF SYSTEMS: Done for constitutional, cardiovascular, GI, pulmonary and relevant findings as above. CURRENT MEDICATIONS: Current medications reviewed that include IV fluids and IV Zosyn. PHYSICAL EXAMINATION: VITAL SIGNS: Temperature 97.9, pulse 77, respiratory rate 16. Blood pressure 130/74. Pulse ox 96% on room air. GENERAL APPEARANCE: Lying in bed, uncomfortable. EYES: Pupils equal. Conjunctivae pale. HEENT: External appearance of nose and ears normal. Oral cavity normal. NECK: JVD not raised. Mass not palpable. RESPIRATORY: Effort normal. LUNGS: Decreased breath sounds. CARDIOVASCULAR: 1st and 2nd sounds normal. No edema. ABDOMEN: Distended. Bowel sounds are hyperactive. Minimal tenderness. Liver and spleen not palpable. PSYCHIATRY: Alert and oriented x3. Mood and affect anxious-appearing. INVESTIGATIONS: Potassium 3.7, BUN and creatinine is normal. Barium enema shows high-grade obstruction at the level of sigmoid colon. ASSESSMENT: 1. High-grade obstruction in the sigmoid colon via barium enema. 2. Severe hypokalemia from diarrhea improved. 3. Primary osteoarthritis. 4. Hypothyroidism. 5. 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 6. Bicytopenia probably from chemotherapy. 7. Metabolic acidosis, severe, from renal failure. 8. Acute renal failure from diarrhea with some improvement. 9. Chronic kidney disease stage 3. 10.Multiple myeloma presented in remission. The patient has been treatment. 11.Hyperchloremia. PLAN: At this point, continue medication and treatment plan till patient takes final decision. ADVANCED CARE PLANNING: Care was discussed in detail with the patient, his son, daughter and granddaughter at the bedside. The patient pretty much makes most of the decisions. Dr. Sanchez has already spoke with the patient about a possibly diverting colostomy. The patient at this point is thinking the quality of life is not good and also multiple myeloma is being treated and she is not sure she really wants to go through all this. The patient also got acquired von Willebrand's disease and that will be another factor if she goes to surgery. I did have a lengthy talk about this and patient strongly leaning towards hospice. She does wish to speak to Dr. Jaquez before she makes a determination even given that overall she feels she has had a good life and does not really want to go through more treatment since surgery. Several questions were answered and the patient is comfortable with answers. More than 30 minutes was spent on this aspect of the case. Will await the case. Later I got informed by Laya from Oncology that after talking to the patient, the patient has decided to proceed with hospice and hospice consult is being initiated. AIDE / TAI: [id number] /
--- NOTE | 2018-02-17 22:57 | P.PN ---
Subjective Progress Note Date: 02/17/18 This is an 88-year-old female patient with past medical history significant for multiple myeloma under the care of Dr. Jaquez. Patient states she has had ongoing problems with diarrhea on and off since she was diagnosed in March 2017 with multiple myeloma. She states this episode that was bad started on . She is having multiple watery stools. She denies any fever or chills. She did have nausea and vomiting which has been resolved with Zofran. She states this episode actually started first with vomiting and did this several times during the day and then diarrhea followed. She normally takes Imodium and keeps this under control but this episode was worse than usual. Patient denies having any blood or tarriness to her stools or emesis. She came into [facility] emergency center for evaluation. Temperature maximum 100.4, white count initially 79.3 is now 58 with hemoglobin of 9.5 and platelet count 123. Creatinine was initially 2.4 and now at 1.79. Lactic acid was 3.5 and is now 1.3 status post 1 L of IV fluids, ceftriaxone IV Tylenol and Protonix were all given in the emergency center. Alkaline phosphatase was also elevated 186 and repeat is 122. Albumin is 3.3. Chest x- ray shows borderline cardiomegaly and left lower base scarring. CAT scan of the abdomen and pelvis without contrast showed generalized ileus, probable fibroid uterus, left renal atrophy, some tiny right-sided effusion. General changes in wedge compression fractures in the lumbar spine appear chronic. Patient was placed on Zosyn and admitted to the oncology unit. There is consult in place with Dr. Jaquez and immunoglobulin, stool for CMV and protein electrophoresis have been ordered. There is also Giardia and cryptosporidium ordered. Urine culture and blood culture status received. Patient has been on Zosyn and this point, she states she is not feeling any better but her nausea is improved. She has had multiple bowel movements since admission. C. difficile toxin is negative. Influenza testing is negative. 02/14/2018 reveals the patient be feeling slightly better today. However she is still having some distended abdomen as well as multiple loose stools and is feeling very weak. She's been evaluated by surgery as well as oncology. She is evidence of significant leukocytosis it appears to be a reactive phenomenon from her underlying ileus and abnormal bone marrow from her multiple myeloma. She is denying much fever is having some clear liquids only at this time. 02/16/2018 has been seen by surgery and barium contrast enema ordered given ongoing symptoms. 02/17/2018The patient has had the area enema performed. As noted there is evidence of a bstructing lesion in the sigmoid colon, The findings of and discussed with the general surgeon and the family. Objective - Vital Signs Vital signs: Vital Signs Temp 98.3 F 02/17/18 21:00 Pulse 73 02/17/18 21:00 Resp 18 02/17/18 21:00 BP 149/67 02/17/18 21:00 Pulse Ox 95 02/17/18 21:00 Intake & Output 02/17/18 02/17/18 02/18/18 06:59 18:59 06:59 Intake Total 2430 1200 Balance 2430 1200 Weight 63.276 kg Intake: Intake, IV Titration 1600 1200 Amount Lactated Ringers 1,000 ml 1500 1200 @ 125 mls/hr IV .Q8H [facility] Rx#:[id number] Piperacillin-Tazobactam 3 100 .375 gm In Sodium Chloride 0.9% 100 ml @ 25 mls/hr IVPB Q8H [facility] Rx#: [id number] Oral 830 Other: Voiding Method Bedside Commode Bedside Commode Diaper Diaper Incontinent Incontinent # Voids 2 3 2 # Bowel Movements 1 2 - Exam Gen: This is an 88-year-old female. She appears to be uncomfortable and in bed. She is slightly thin-appearing. HEENT: Head is atraumatic, normocephalic. Pupils equal, round. Sclerae is anicteric. Mucous members of the mouth are slightly dry. No thrush noted. NECK: Supple. No JVD. No lymphadenopathy. No thyromegaly. LUNGS: Clear to auscultation. No wheezes or rhonchi. No intercostal retractions. HEART: Regular rate and rhythm. No murmur. ABDOMEN: The abdomen is soft it is still mildly distended there is some diffuse tenderness without palpable mass or organomegaly no guarding or rebound EXTREMITIES: No pedal edema. No calf tenderness. Dorsalis pedis +2 bilaterally. NEUROLOGICAL: Patient is awake, alert and oriented x3. - Labs CBC & Chem 7: 02/16/18 08:01 02/17/18 03:42 Labs: Abnormal Lab Results - Last 24 Hours (Table) 02/17/18 02/17/18 02/17/18 Range/Units 03:42 03:42 13:00 INR 1.2 H (<1.2) APTT 33.4 H 32.8 H (22.0-30.0) sec Chloride 116 H (98-107) mmol/L Carbon Dioxide 18 L (22-30) mmol/L Glucose 104 H (74-99) mg/dL Calcium 8.2 L (8.4-10.2) mg/dL Microbiology - Last 24 Hours (Table) 02/12/18 09:30 Blood Culture - Preliminary Blood No Growth after 120 hours Laboratory Results WBC 39.3 k/uL (3.8-10.6) H 02/16/18 08:01 RBC 2.51 m/uL (3.80-5.40) L 02/16/18 08:01 Hgb 8.9 gm/dL (11.4-16.0) L 02/16/18 08:01 Hct 27.3 % (34.0-46.0) L 02/16/18 08:01 MCV 108.9 fL (80.0-100.0) H 02/16/18 08:01 MCH 35.4 pg (25.0-35.0) H 02/16/18 08:01 MCHC 32.5 g/dL (31.0-37.0) 02/16/18 08:01 RDW 21.7 % (11.5-15.5) H 02/16/18 08:01 Plt Count 142 k/uL (150-450) L 02/16/18 08:01 Neutrophils % (Manual) 78 % 02/16/18 08:01 Band Neutrophils % 4 % 02/16/18 08:01 Lymphocytes % (Manual) 8 % 02/16/18 08:01 Monocytes % (Manual) 8 % 02/16/18 08:01 Metamyelocytes % 1 % 02/16/18 08:01 Myelocytes % 2 % 02/16/18 08:01 Neutrophils # (Manual) 32.20 k/uL (1.3-7.7) H 02/16/18 08:01 Lymphocytes # (Manual) 3.14 k/uL (1.0-4.8) 02/16/18 08:01 Monocytes # (Manual) 3.14 k/uL (0-1.0) H 02/16/18 08:01 Metamyelocytes # (Man) 0.39 k/uL (0) H 02/16/18 08:01 Myelocytes # (Manual) 0.79 k/uL (0) H 02/16/18 08:01 Nucleated RBCs 0 /100 WBC (0-0) 02/16/18 08:01 Manual Slide Review Performed 02/16/18 08:01 Polychromasia Present 02/16/18 08:01 Hypochromasia Slight 02/16/18 08:01 Poikilocytosis (manual Present 02/16/18 08:01 Anisocytosis Moderate 02/16/18 08:01 Macrocytosis Marked 02/16/18 08:01 PT 11.3 sec (9.0-12.0) 02/17/18 13:00 INR 1.2 (<1.2) H 02/17/18 13:00 APTT 32.8 sec (22.0-30.0) H 02/17/18 13:00 Sodium 140 mmol/L (137-145) 02/17/18 03:42 Potassium 3.7 mmol/L (3.5-5.1) 02/17/18 03:42 Chloride 116 mmol/L (98-107) H 02/17/18 03:42 Carbon Dioxide 18 mmol/L (22-30) L 02/17/18 03:42 Anion Gap 6 mmol/L 02/17/18 03:42 BUN 8 mg/dL (7-17) 02/17/18 03:42 Creatinine 0.63 mg/dL (0.52-1.04) 02/17/18 03:42 Est GFR (CKD-EPI)AfAm >90 (>60 ml/min/1.73 sqM) 02/17/18 03:42 Est GFR (CKD-EPI)NonAf 81 (>60 ml/min/1.73 sqM) 02/17/18 03:42 Glucose 104 mg/dL (74-99) H 02/17/18 03:42 Lactic Ac Sepsis Rflx Y 02/12/18 11:32 Plasma Lactic Acid Albert 1.3 mmol/L (0.7-2.0) 02/12/18 15:37 Calcium 8.2 mg/dL (8.4-10.2) L 02/17/18 03:42 Magnesium 1.5 mg/dL (1.6-2.3) L 02/16/18 08:01 Total Bilirubin 0.6 mg/dL (0.2-1.3) 02/16/18 08:01 AST 28 U/L (14-36) 02/16/18 08:01 ALT 29 U/L (9-52) 02/16/18 08:01 Alkaline Phosphatase 85 U/L (38-126) 02/16/18 08:01 Total Protein 5.7 g/dL (6.3-8.2) L 02/16/18 08:01 Total Protein (PEP) 5.4 g/dL (6.2-8.2) L 02/13/18 07:12 Albumin 3.2 g/dL (3.5-5.0) L 02/16/18 08:01 Albumin (PEP) 3.20 g/dL (3.80-4.90) L 02/13/18 07:12 Yyrvj-8-Iyfuhxvqf 0.25 g/dL (0.10-0.40) 02/13/18 07:12 Hoige-4-Goqersvon 0.82 g/dL (0.60-1.00) 02/13/18 07:12 Beta Globulins 0.69 g/dL (0.60-1.30) 02/13/18 07:12 Gamma Globulins 0.45 g/dL (0.70-1.50) L 02/13/18 07:12 PEP Interpretation see comment 02/13/18 07:12 Amylase 65 U/L (30-110) 02/12/18 09:30 Lipase 63 U/L (23-300) 02/12/18 09:30 Urine Color Yellow 02/12/18 10:14 Urine Appearance Cloudy (Clear) H 02/12/18 10:14 Urine pH 5.0 (5.0-8.0) 02/12/18 10:14 Ur Specific [place] 1.016 (1.001-1.035) 02/12/18 10:14 Urine Protein Trace (Negative) H 02/12/18 10:14 Urine Glucose (UA) Negative (Negative) 02/12/18 10:14 Urine Ketones Negative (Negative) 02/12/18 10:14 Urine Blood Negative (Negative) 02/12/18 10:14 Urine Nitrite Negative (Negative) 02/12/18 10:14 Urine Bilirubin Negative (Negative) 02/12/18 10:14 Urine Urobilinogen <2.0 mg/dL (<2.0) 02/12/18 10:14 Ur Leukocyte Esterase Negative (Negative) 02/12/18 10:14 Urine RBC <1 /hpf (0-5) 02/12/18 10:14 Urine WBC <1 /hpf (0-5) 02/12/18 10:14 Ur Squamous Epith Cells <1 /hpf (0-4) 02/12/18 10:14 Urine Mucus Rare /hpf (None) H 02/12/18 10:14 Stl Cryptosporidium Ag Negative (Negative) 02/13/18 02:00 Stool Giardia Source Stool 02/13/18 02:00 Stl Giardia Antigen Negative (Negative) 02/13/18 02:00 IgG 485.0 mg/dL (700.0-1600.0) L 02/13/18 07:12 IgA 28.4 mg/dL (60.0-350.0) L 02/13/18 07:12 IgM 19.5 mg/dL (40.0-280.0) L 02/13/18 07:12 C. difficile Tox (PCR) Not Detected (Not Detectd) 02/12/18 15:37 Influenza Type A RNA Not Detected (Not Detectd) 02/13/18 09:25 Influenza Type B (PCR) Not Detected (Not Detectd) 02/13/18 09:25 Miscellaneous Test CMV PCR, Stool 02/13/18 09:06 Misc Test Result Cancelled 02/13/18 09:06 Blood Type O Positive 02/12/18 09:30 Blood Type Recheck No 02/12/18 09:30 Antibody Screen NEGATIVE 02/12/18 09:30 Spec Expiration Date 02/15/2018 - 232902/12/18 09:30 Microbiology 02/12/18 09:30 Blood Blood Culture - Preliminary No Growth after 120 hours 02/12/18 10:14 Urine,Catheterized Urine Culture - Final - Imaging and Cardiology barium enema reveals evidence of the nearly obstructing mass of the sigmoid colon Assessment and Plan (1) Multiple myeloma without remission Current Visit: No Status: Acute Priority: High Code(s): C90.00 - MULTIPLE MYELOMA NOT HAVING ACHIEVED REMISSION SNOMED Code(s): 492997750 (2) Ileus Current Visit: Yes Status: Acute Code(s): K56.7 - ILEUS, UNSPECIFIED SNOMED Code(s): 673582513 (3) Leukocytosis Narrative/Plan: As noted pleasant 88 neuro female presents to Hospital feeling quite poorly with abdominal pain some loose stools nausea and emesis. She's been seen by general surgery and there is evidence of an acute ileus and she is now on a small amount of clear liquid and a suppository to be placed to help with relief of what could be a partial obstruction. The patient has a profound leukocytosis was very concerning in a situation that could be potentially some ischemic colitis occurring. A leukemoid reaction is not unusual with C. diff infection however this is not being found at this time. Would continue antimicrobial therapy with Zosyn for now pending further culture results. Monitor leukocytosis. She's been closely monitored by general surgery. She also had evidence of acute renal failure that is starting to improve at this time. As noted influenza testing is negative. Today continues to have the abdominal x-ray findings with ileus and multiple loose stools. There is no evidence of any retained stool on the digital exam at the time of the suppository placement. The profound leukocytosis is definitely improving but is still in the 50 range. She does have abnormal bone marrow from her multiple myeloma. If she continues to have ongoing symptomatology there may be bowel obstruction resulting in ileus and may need endoscopic evaluation to further evaluate. Continue antibiotic therapy with Zosyn cultures in process. 02/16/2018 patients son is present and understands plan as to barium enema and then determine what should occur next, likely will not accept surgcial plan. Has multiple myeloma and the leukemoid reaction is improving. 02/17/2018 the patient has had evaluation and now includes imaging study that shows evidence of the nearly obstructing lesion of the sigmoid colon. The details are discussed with the surgeon in the family. The patient does not want any extensive surgical intervention with a long-standing history of multiple myeloma. As when she will be transitioned to hospice and hopefully will transition to the hospice house in the near future. Current Visit: Yes Status: Acute Code(s): D72.829 - ELEVATED WHITE BLOOD CELL COUNT, UNSPECIFIED SNOMED Code(s): 610988316
[2018-02-18] MEDS: PIPERACILLIN-TAZOBACTAM 3.375 GM in SODIUM CHLORIDE 0.9% 100 ML IVPB SCH ×2 (01:58→10:51)
[2018-02-18 05:10] VITALS: BP 151/70; PULSE 77; RESP 16
[2018-02-18] MEDS: LEVOTHYROXINE 137 MCG TAB PO SCH (05:40)
[2018-02-18 09:44] LABS: Anion Gap 10 mmol/L; Blood Urea Nitrogen 6 mg/dL (7-17); Carbon Dioxide 17 mmol/L (22-30); Chloride 113 mmol/L (98-107); Glucose 75 mg/dL (74-99); Potassium 2.8 mmol/L (3.5-5.1); Sodium 140 mmol/L (137-145)
[2018-02-18] MEDS: ACYCLOVIR 200 MG CAP PO SCH (10:49)
[2018-02-18] MEDS: BISACODYL 10 MG SUPP RECTAL SCH (10:49)
[2018-02-18] MEDS: FAMOTIDINE 20 MG TAB PO SCH (10:50)
[2018-02-18] MEDS: DORZOLAMIDE HCL 2% DROPS 10 ML BTL BOTH EYES SCH (10:50)
[2018-02-18] MEDS: PSYLLIUM HUSK 100% 6 GM PACKET PO SCH (10:50)
[2018-02-18] MEDS: MULTIVITAMINS, THERA 1 EACH TAB PO SCH (10:50)
[2018-02-18] MEDS: BRIMONIDINE TARTRATE 0.2% DROPS 5 ML BTL BOTH EYES SCH (10:50)
[2018-02-18] MEDS: SODIUM BICARBONATE TAB 650 MG TAB PO SCH (10:51)
== END 2018-02-18 11:16 | disposition hospice, inpatient (51) | DRG 872 ==
LOC: EC 09:15 → 3NMEDONC 12:44
PROVIDERS: ADMIT Hospitalist; ATTEND Hospitalist
DX: A41.9 Sepsis, unspecified organism (principal); E87.2 Acidosis; K56.7 Ileus, unspecified; N17.9 Acute kidney failure, unspecified; C90.00 Multiple myeloma not having achieved remission; K56.601 Complete intestinal obstruction, unspecified as to cause; D25.9 Leiomyoma of uterus, unspecified; E03.9 Hypothyroidism, unspecified; E78.5 Hyperlipidemia, unspecified; E86.0 Dehydration; E87.6 Hypokalemia; E87.8 Other disorders of electrolyte and fluid balance, not elsewhere classified; H40.9 Unspecified glaucoma; H91.90 Unspecified hearing loss, unspecified ear; I12.9 Hypertensive chronic kidney disease with stage 1 through stage 4 chronic kidney disease, or unspecified chronic kidney disease; K21.9 Gastro-esophageal reflux disease without esophagitis; M19.042 Primary osteoarthritis, left hand; M19.041 Primary osteoarthritis, right hand; N18.3 Chronic kidney disease, stage 3 (moderate); T45.1X5A Adverse effect of antineoplastic and immunosuppressive drugs, initial encounter; Z51.5 Encounter for palliative care; D69.6 Thrombocytopenia, unspecified; M19.90 Unspecified osteoarthritis, unspecified site; K52.9 Noninfective gastroenteritis and colitis, unspecified; F32.9 Major depressive disorder, single episode, unspecified; E07.9 Disorder of thyroid, unspecified; H26.9 Unspecified cataract; Z79.52 Long term (current) use of systemic steroids; Z79.899 Other long term (current) drug therapy; Z87.891 Personal history of nicotine dependence; Z96.652 Presence of left artificial knee joint
CPT/HCPCS: 36415; 71046; 74018; 74019; 74176; 74270; 80048; 80053; 81001; 82150; 82784; 83605; 83690; 83735; 84132; 84165; 85025; 85610; 85730; 86850; 86900; 86901; 87040; 87086; 87328; 87329; 87493; 87502; 93005; 96365; 96375; 99285

== ENCOUNTER 2018-02-18 11:20 | Inpatient (IN) | payer OTHER ==
--- NOTE | 2018-02-18 13:05 | P.PN ---
Subjective Progress Note Date: 02/18/18 Principal diagnosis: Colonic obstruction Patient without new changes. Still having loose stools. Minimal abdominal discomfort. Tolerating liquids. Objective - Vital Signs Vital signs: Intake & Output 02/17/18 02/18/18 02/18/18 18:59 06:59 18:59 Weight 63.276 kg - Exam Abdomen: Soft, mild distention, nontender Assessment and Plan Plan: Clinically the patient's abdominal exam appears improved at this time. Advance diet. Patient and family decided on hospice measures. We'll sign off. Please contact if needed.
[2018-02-18] MEDS ORDERED: ATROPINE OPHTH SOLN 1% 5ML BTL SUBLINGUAL PRN (15:31)
[2018-02-18] MEDS ORDERED: MORPHINE SULFATE 2 MG/ML SYRINGE IV PRN (15:31)
[2018-02-18] MEDS ORDERED: ONDANSETRON 4 MG/2 ML VIAL IVP PRN (15:31)
[2018-02-18] MEDS ORDERED: LORazepam 0.5 MG TAB PO PRN (15:31)
[2018-02-18] MEDS ORDERED: ACETAMINOPHEN TAB 325 MG TAB PO PRN (15:44)
[2018-02-18] MEDS ORDERED: MORPHINE SULFATE 4 MG/ML SYRINGE IV PRN (15:44)
[2018-02-18 15:56] VITALS: BMI 21.2
[2018-02-19 04:59] VITALS: BP 139/76; PULSE 78; RESP 18; TEMP 98.1
== END 2018-02-19 16:41 | disposition hospice, home (50) | DRG 389 ==
LOC: 3NMEDONC 11:20
PROVIDERS: ADMIT Internal Medicine Hematology & Oncology; ATTEND Internal Medicine Hematology & Oncology
DX: K56.7 Ileus, unspecified (principal); N17.9 Acute kidney failure, unspecified; C90.00 Multiple myeloma not having achieved remission; D75.9 Disease of blood and blood-forming organs, unspecified; F32.9 Major depressive disorder, single episode, unspecified; E78.5 Hyperlipidemia, unspecified; M19.90 Unspecified osteoarthritis, unspecified site; E07.9 Disorder of thyroid, unspecified; H40.9 Unspecified glaucoma; K21.9 Gastro-esophageal reflux disease without esophagitis; I10 Essential (primary) hypertension; H91.90 Unspecified hearing loss, unspecified ear; Z87.891 Personal history of nicotine dependence; Z98.42 Cataract extraction status, left eye; Z98.41 Cataract extraction status, right eye; Z96.1 Presence of intraocular lens; Z96.651 Presence of right artificial knee joint; Z79.890 Hormone replacement therapy; Z79.899 Other long term (current) drug therapy